=== PATIENT | female | born 1945 | race Caucasian/White ===

== ENCOUNTER 2017-04-05 08:59 | Inpatient (IN) | payer MEDICARE, OTHER ==
[~2017-04-05] VITALS: Ht 160 cm; Wt 65.8 kg
[2017-04-05 11:32] LABS: BASOPHILS # (AUTO) 0.3 /CMM (0.0-0.2); BASOPHILS % (AUTO) 3.1 % (0.0-2.0); EOSINOPHILS # (AUTO) 0.4 /CMM (0.0-0.7); EOSINOPHILS % (AUTO) 4.9 % (0.0-6.0); HEMATOCRIT 43 % (33-45); HEMOGLOBIN 13.8 g/dL (11.5-14.8); LYMPHOCYTES # (AUTO) 1.8 /CMM (0.8-4.8); LYMPHOCYTES % (AUTO) 22.2 % (20.0-44.0); MEAN CORPUSCULAR HEMOGLOBIN 27 PG (26.0-33.0); MEAN CORPUSCULAR HGB CONC 32 g/dl (31.0-36.0); MEAN CORPUSCULAR VOLUME 85 fL (82-100); MONOCYTES # (AUTO) 0.7 /CMM (0.1-1.30); MONOCYTES % (AUTO) 8.4 % (2.0-12.0); NEUTROPHILS % (AUTO) 61.4 % (43.0-81.0); PLATELET COUNT (AUTO) 321 /CMM (150-450); RDW COEFFICIENT OF VARIATION 16.5 (11.5-15.0); RED BLOOD CELL COUNT(AUTO) 5.09 MIL/uL (4.0-5.2); WHITE BLOOD COUNT (AUTO) 8.2 K/uL (4.3-11.0)
[2017-04-05 11:42] LABS: CALCIUM, SERUM 9.1 mg/dL (8.5-10.1); CARBON DIOXIDE 27 mmol/L (21-32); CHLORIDE 102 mmol/L (98-107); CREATININE 1.8 mg/dL (0.6-1.3); GLUCOSE 111 mg/dL (74-106); POTASSIUM 4.7 mmol/L (3.5-5.1); SODIUM SERUM 138 mmol/L (136-145); UREA NITROGEN, BLOOD 26 mg/dL (7-18)
[2017-04-05 11:48] LABS: ALANINE AMINOTRANSFERASE 17 U/L (12-78); ALBUMIN 3.9 g/dL (3.4-5.0); ALCOHOL, BLOOD < 3 mg/dL (0-0); ALKALINE PHOSPHATASE 90 U/L (46-116); BILIRUBIN,TOTAL 0.6 mg/dL (0.2-1.0); SALICYLATE 3.1 mg/dL (2.8-20.0); TOTAL PROTEIN, SERUM 8.2 g/dL (6.4-8.2)
[2017-04-05 11:49] LABS: ACETAMINOPHEN 0 ug/ml (10-30)
[2017-04-05 11:58] LABS: ASPARTATE AMINOTRANSFERASE 21 U/L (15-37)
--- NOTE | 2017-04-05 12:06 | NUR ---
CALLED [facility] FOR PSYCH EVAL, LEFT MESSAGE ON VOICEMAIL
--- NOTE | 2017-04-05 12:13 | NUR ---
RECEIVED CALL BACK FROM [facility], SHE SAID [facility] IS COVERING FOR HER TODAY.
--- NOTE | 2017-04-05 12:14 | NUR ---
CALLED [facility] FOR PSYCH EVAL, LEFT MESSAGE ON VOICEMAIL
[2017-04-05] MEDS ORDERED: HALOPERIDOL LACTATE INJ 5 MG/ML VIAL IM ONE (12:30)
--- NOTE | 2017-04-05 12:36 | NUR ---
RECEIVED CALL BACK FROM [facility], ETA WITHIN THE HOUR
[2017-04-05] MEDS ORDERED: HALOPERIDOL LACTATE INJ 5 MG/ML VIAL ONE (12:57)
[2017-04-05] MEDS ORDERED: LORAZEPAM INJ 2 MG/ML VIAL IM ONE (13:30)
[2017-04-05] MEDS ORDERED: diphenhydrAMINE HCL 50 MG/ML VIAL ONE (13:30)
[2017-04-05] MEDS ORDERED: OLANZAPINE 10 MG VIAL IM ONE ×2 (13:30)
[2017-04-05] MEDS ORDERED: LORAZEPAM INJ 2 MG/ML VIAL ONE (13:30)
[2017-04-05] MEDS ORDERED: diphenhydrAMINE HCL 50 MG/ML VIAL IM ONE (13:30)
[2017-04-05] MEDS ORDERED: WATER FOR INJECTION,STERILE 10 ML ONE (13:32)
[2017-04-05] MEDS ORDERED: IV NS 0.9% 1,000 ML BAG IV ONE (16:00)
[2017-04-05 16:34] LABS: APPEARANCE,URINE CLEAR (CLEAR); BILIRUBIN,URINE NEGATIVE (NEGATIVE); BLOOD, URINE NEGATIVE Ery/uL (NEGATIVE); COLOR,URINE DARK YELLO (YELLOW); KETONES,URINE NEGATIVE (NEGATIVE); LEUKOCYTE ESTERASE ,URINE NEGATIVE (NEGATIVE); NITRITE, URINE NEGATIVE (NEGATIVE); PH,URINE 5.5 (5.0-8.0); PROTEIN,URINE NEGATIVE (NEGATIVE); UGLUCOSE NEGATIVE (NEGATIVE); UROBILINOGEN,URINE 0.2 EU/dL (0.2)
[2017-04-05] MEDS ORDERED: IV NS 0.9% 1,000 ML ONE (16:50)
[2017-04-05] MEDS ORDERED: IV SET PRIMARY 1 EA INFUS.SET MC ONE (16:50)
--- NOTE | 2017-04-05 16:51 | NUR ---
CESARIO PAGED, ROSALEE RAMIREZ MOLD CONSTRUCTION SUPERVISOR
--- NOTE | 2017-04-05 16:51 | NUR ---
CALLED NURSING SUP. FOR TELE BED
--- NOTE | 2017-04-05 17:14 | NUR ---
[facility] REPAGED
--- NOTE | 2017-04-05 17:55 | NUR ---
TELE 325-2
--- NOTE | 2017-04-05 18:12 | NUR ---
REPORT GIVEN TO WALLY KUO FOR [employer] TELE 325-2
[2017-04-05] MEDS ORDERED: TRAM50TA2 PO (18:42)
[2017-04-05] MEDS ORDERED: SIMV20TA6 PO (18:42)
[2017-04-05] MEDS ORDERED: ASPI-991 PO (18:42)
[2017-04-05] MEDS ORDERED: NAPR500T3 PO (18:42)
[2017-04-05 19:00] VITALS: BP 118/77
--- NOTE | 2017-04-05 19:00 | NUR ---
tele long term care pharmacist: notes brought pt from e.r. via gurney and transferred pt safely back to bed. pt too sedated to be assessed at this time. oral temp and axillary temp not taking it, attempted multiple times and still unable to take. pt shivering. provided 3 warm blankets. placed pt on tele=-sr on the monitor. rectal temp taken 95.6. placed pt on a gown. incontinent care rendered. kept clean and dry. cn made aware re: hypothermia. report given to hattie ogden) for continuity of care. will continue to monitor.
--- NOTE | 2017-04-05 19:45 | NUR ---
RN OPENING NOTES RECEIVED REPORT FROM AYAAN HUDSON LVN. Pt ARRIVED ONTO FLOOR CLOSE TO 1900. FOUND Pt ASLEEP IN BED. TOO SEDATED TO BE WAKEN UP AT THIS TIME. WILL TRY AGAIN TO WAKE UP Pt. RECTAL TEMP OF 95.6F. GIVEN EXTRA WARM BLANKET AND PUT HEATER ON HIGH. WILL RECHECK TEMP FOR 1999 VS. IV ACCESS ON RAC #20G. TELE READING SR 90's. SAFETY MEASURES IN PLACE. BED LOW, LOCKED, HOB ELEVATED, SIDE RAILS UP, CALL LIGHT AND BEDSIDE TABLE WITHIN REACH. WILL CONTINUE TO MONITOR Pt THROUGHOUT THE NIGHT FOR SAFETY.
[2017-04-05 20:00] VITALS: BP 96/52
[2017-04-05 22:00] VITALS: BP 96/52
[2017-04-06] VITALS: BP 107/56
[2017-04-06] MEDS ORDERED: ONDANSETRON HCL/PF 4 MG/2 ML VIAL IVP PRN
[2017-04-06] MEDS ORDERED: ACETAMINOPHEN 325 MG TABLET PO PRN
[2017-04-06] MEDS ORDERED: Z GUARD REMEDY 2 OZ OINT TP PRN
[2017-04-06] MEDS ORDERED: MAG HYDROX/AL HYDROX/SIMETH 30 ML UDC PO PRN
[2017-04-06] MEDS ORDERED: MAGNESIUM HYDROXIDE 30 ML UDC PO PRN
[2017-04-06] MEDS ORDERED: IV NS 0.9% 1,000 ML ONE (00:51)
[2017-04-06] MEDS ORDERED: IV SET PRIMARY PUMP SET 1 EA INFUS.SET MC ONE (00:51)
[2017-04-06] MEDS: IV NS 0.9% 1,000 ML IV PRN (01:08)
[2017-04-06 04:00] VITALS: BP 107/53
[2017-04-06] MEDS ORDERED: CLINDAMYCIN IV RTU IN D5W 600 MG/50 ML PIGGYBACK IV SCH (05:00)
[2017-04-06] MEDS ORDERED: CLINDAMYCIN 900 MG/6 ML VIAL ONE (05:38)
[2017-04-06] MEDS ORDERED: IV D5W 50 ML IV ONE (06:21)
[2017-04-06] MEDS ORDERED: SECONDARY IV SET 1 EA INFUS.SET MC ONE (06:21)
--- NOTE | 2017-04-06 06:49 | NUR ---
RN CLOSING NOTES NO SIGNIFICANT CHANGES IN Pt's CONDITION. NO S/S OF ACUTE DISTRESS OR SOB NOTED. EQUAL CHEST RISE AND FALL. Pt STILL SEDATED, BUT IS AROUSED TO EXTERNAL STIMULI. VS STABLE. ALL NEEDS MET AND ATTENDED TO. SAFETY MEASURES IN PLACE. WILL ENDORSE TO DAYSHIFT RN FOR Pt's GUANACO. TELE READING SR 90's.
[2017-04-06 07:06] VITALS: BP 101/54
[2017-04-06] MEDS: PANTOPRAZOLE 40 MG TABLET.DR PO SCH ×2 (07:30→13:06)
[2017-04-06 07:38] LABS: BASOPHILS % (AUTO) 0.2 % (0.0-2.0); EOSINOPHILS # (AUTO) 0.4 /CMM (0.0-0.7); EOSINOPHILS % (AUTO) 6.8 % (0.0-6.0); HEMATOCRIT 39 % (33-45); HEMOGLOBIN 12.9 g/dL (11.5-14.8); LYMPHOCYTES # (AUTO) 1.4 /CMM (0.8-4.8); LYMPHOCYTES % (AUTO) 26.7 % (20.0-44.0); MEAN CORPUSCULAR HEMOGLOBIN 28 PG (26.0-33.0); MEAN CORPUSCULAR HGB CONC 33 g/dl (31.0-36.0); MEAN CORPUSCULAR VOLUME 83 fL (82-100); MONOCYTES # (AUTO) 0.4 /CMM (0.1-1.30); MONOCYTES % (AUTO) 8.6 % (2.0-12.0); NEUTROPHILS % (AUTO) 57.7 % (43.0-81.0); PLATELET COUNT (AUTO) 256 /CMM (150-450); RED BLOOD CELL COUNT(AUTO) 4.67 MIL/uL (4.0-5.2); WHITE BLOOD COUNT (AUTO) 5.1 K/uL (4.3-11.0)
[2017-04-06 07:50] LABS: CREATININE 1.1 mg/dL (0.6-1.3); MAGNESIUM 1.8 mg/dL (1.8-2.4); PHOSPHORUS 3.7 mg/dL (2.5-4.9); POTASSIUM 4.3 mmol/L (3.5-5.1)
--- NOTE | 2017-04-06 08:08 | NUR ---
RN OPENING NOTES RECEIVED PATIENT IN BED, AWAKE, IN SEMI AVELAR POSITION, NO SOB OR DISTRESS NOTED. A/O X 1-2. IV INTACT AND PATENT. KEPT PATIENT CLEAN AND COMFORTABLE IN BED, CALL LIGHT WITHIN PATIENT REACH. WILL CONTINUE TO MONITOR ACCORDINGLY.
[2017-04-06] MEDS: ASPIRIN EC 81 MG TABLET.DR PO SCH (09:00)
--- NOTE | 2017-04-06 11:14 | NUR ---
WOUND CARE CONSULT: PT BEING SEEN BY SURGICAL TEAM. DEFER TO SURGICAL TEAM. RECOMMENDATIONS MADE FOR SKIN PROTECTION. DISCUSSED WITH NURSING STAFF. WILL SEE PRN.
[2017-04-06] MEDS: HYDROCODONE/APAP 5/325MG 1 EACH TABLET PO PRN ×2 (13:07→23:33)
[2017-04-06] MEDS: CLINDAMYCIN 600 MG in IV D5W 50 ML IV SCH ×2 (13:18→21:23)
[2017-04-06] MEDS ORDERED: OLANZAPINE 10 MG VIAL IM PRN (14:30)
[2017-04-06] MEDS ORDERED: OLANZAPINE 5 MG/TAB.RAPDIS PO PRN (14:30)
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
[2017-04-06 16:21] VITALS: BP 138/70
[2017-04-06] MEDS: CLOTRIMAZOLE 1% 15 GM TUBE TP SCH (16:58)
[2017-04-06] MEDS: SILVER SULFADIAZINE CREAM 25 GM TUBE TP SCH (18:34)
--- NOTE | 2017-04-06 18:42 | NUR ---
RN CLOSING NOTES ALL NEEDS PROVIDED, ATTENDED, AND ANTICIPATED. KEPT PATIENT CLEAN AND COMFORTABLE IN BED, CALL LIGHT WITHIN PATIENT REACH, WILL CONTINUE TO MONITOR ACCORDINGLY. ENDORSED TO NEXT SHIFT RN TO CONTINUE CARE.
[2017-04-06 20:00] VITALS: BP 132/71
--- NOTE | 2017-04-06 21:37 | NUR ---
RN OPEN NOTES RECEIVED PATIENT FROM MADONNA LO. PATIENT AWAKE IN BED WITH SITTER AT BEDSIDE. A/O X3. NO SIGNS OF DISTRESS OR DISCOMFORT. BREATHING EVEN AND UNLABORED. IV ACCESS IN LFA PATENT AND INTACT, NO SIGNS OF REDNESS OR INFILTRATION. BED IN LOW LOCKED POSITION WITH SIDE RAILS X2. CALL LIGHT WITHIN REACH. WILL CONTINUE TO MONITOR.
[2017-04-06 22:00] VITALS: BP 132/71
[2017-04-06] MEDS: SIMVASTATIN 20 MG TABLET PO SCH (22:28)
--- NOTE | 2017-04-06 23:37 | NUR ---
RN NOTES ADMINISTERED NORCO 5/325 FOR PAIN 7/10 IN LEFT KNEE. VSS. WILL CONTINUE TO MONITOR.
[2017-04-07] MEDS: IV NS 0.9% 1,000 ML IV PRN (04:40)
[2017-04-07] MEDS: CLINDAMYCIN 600 MG in IV D5W 50 ML IV SCH ×3 (04:41→20:02)
[2017-04-07] MEDS: HYDROCODONE/APAP 5/325MG 1 EACH TABLET PO PRN ×3 (05:48→20:02)
--- NOTE | 2017-04-07 05:48 | NUR ---
RN NOTES ADMINISTERED NORCO 5/325 FOR PAIN 7/10 IN LEFT KNEE. VSS. WILL CONTINUE TO MONITOR.
--- NOTE | 2017-04-07 06:40 | NUR ---
RN CLOSING NOTES PATIENT RESTING IN BED WITH SITTER AT BEDSIDE, EASILY AROUSABLE TO NAME. A/O X3. NO SIGNS OF DISTRESS OR DISCOMFORT. BREATHING EVEN AND UNLABORED. IV ACCESS IN LFA PATENT AND INTACT, NO SIGNS OF REDNESS OR INFILTRATION. NO SIGNIFICANT CHANGES THROUGH THE NIGHT. ALL NEEDS MET. DRESSING ON R KNEE C/D/I. BED IN LOW LOCKED POSITION WITH SIDE RAILS X2. CALL LIGHT WITHIN REACH. WILL ENDORSE TO AM SHIFT FOR GUANACO.
[2017-04-07] MEDS: CLOTRIMAZOLE 1% 15 GM TUBE TP SCH ×2 (09:28→16:40)
[2017-04-07] MEDS: ASPIRIN EC 81 MG TABLET.DR PO SCH (09:28)
[2017-04-07] MEDS: FLUCONAZOLE (100 MG) 100 MG TABLET PO SCH (09:28)
[2017-04-07] MEDS: PANTOPRAZOLE 40 MG TABLET.DR PO SCH (09:28)
[2017-04-07] MEDS: SILVER SULFADIAZINE CREAM 25 GM TUBE TP SCH (09:28)
[2017-04-07] MEDS: OLANZAPINE 5 MG/TAB.RAPDIS PO SCH (16:41)
--- NOTE | 2017-04-07 17:48 | NUR ---
RECEIVED REPORT FROM JOHNNIE FOR GUANACO.
--- NOTE | 2017-04-07 18:54 | NUR ---
MS RN CLOSING NOTES PATIENT IN BED, A/O X3. APPEARS CALM AND RELAX. LEFT KNEE, LEFT HEEL WOUND DRESSING INTACT, NO BLEEDING NOTED, NO C/O PAIN AT THIS TIME. NOT IN DISTRESS. CALL LIGHT WITHIN REACH. PATIENT IS ON 5150 HOLD, 1:1 SITTER AT THE BEDSIDE. WILL ENDORSE TO LIGHTING SPECIALIST RN FOR CONTINUITY OF CARE.
[2017-04-07 20:00] VITALS: BP 120/70
--- NOTE | 2017-04-07 20:02 | NUR ---
MS/RN NOTES PT C/O OF ACHING PAIN, LEVEL 8/10, TO R KNEE AND R HEEL. ADMINISTERED NORCO. WILL MONITOR FOR EFFECTIVENESS.
[2017-04-07 20:29] VITALS: BP 120/70
[2017-04-07] MEDS: SIMVASTATIN 20 MG TABLET PO SCH (21:35)
[2017-04-08] MEDS: CLINDAMYCIN 600 MG in IV D5W 50 ML IV SCH ×2 (05:17→13:00)
--- NOTE | 2017-04-08 07:27 | NUR ---
MS/RN NOTES A&OX4. CALM AND COOPERATIVE MOST OF SHIFT. RA. IVF IN PROGRESS. R KNEE AND R HEEL DRSNG CDI. SLEPT MOST OF NIGHT. SITTER AT BEDSIDE. ALL NEEDS MET. SIDE TABLE AND CALL GAVIN WITHIN REACH. WILL ENDORSE TO AM SHIFT FOR CONTINUITY OF CARE.
[2017-04-08 08:00] VITALS: BP 126/69
--- NOTE | 2017-04-08 08:00 | NUR ---
MS RN RECEIVED ON BED, AWAKE,ALERT,ORIENTED X3,NOT IN ANY FORM OF DISTRESS, A [facility] PSYCH PATIENT,NOT IN NAY FORM OF DISTRESS, ON ONE ON ONE SITTER FOR SAFETY AND COMFORT.
[2017-04-08] MEDS: ACIDOPHILUS/BULGARICUS 1 EACH TAB.CHEW PO SCH ×3 (09:17→17:04)
[2017-04-08] MEDS: ASPIRIN EC 81 MG TABLET.DR PO SCH (09:18)
[2017-04-08] MEDS: HYDROCODONE/APAP 5/325MG 1 EACH TABLET PO PRN ×2 (09:18→17:04)
[2017-04-08] MEDS: PANTOPRAZOLE 40 MG TABLET.DR PO SCH (09:18)
[2017-04-08] MEDS: FLUCONAZOLE (100 MG) 100 MG TABLET PO SCH (09:18)
[2017-04-08] MEDS: SILVER SULFADIAZINE CREAM 25 GM TUBE TP SCH (09:27)
[2017-04-08] MEDS: OLANZAPINE 5 MG/TAB.RAPDIS PO SCH ×2 (09:28→17:05)
[2017-04-08] MEDS: CLOTRIMAZOLE 1% 15 GM TUBE TP SCH ×2 (09:28→17:05)
--- NOTE | 2017-04-08 09:30 | NUR ---
MS LO BREAKFAST SERVED,DUE MEDS GIVEN,TOLERATED WELL.
--- NOTE | 2017-04-08 12:00 | NUR ---
MS RN WAS SEEN BY DR. LIRIANO W/ ORDERS MADE AND CARRIED OUT.
--- NOTE | 2017-04-08 13:00 | NUR ---
MS RN PATIENT REFUSED TO TAKE DUE MEDS, IV OUT, REFUSED TO INSERT ANOTHER LINE,WILL TRY LATER.
[2017-04-08 16:00] VITALS: BP 121/78
--- NOTE | 2017-04-08 16:56 | NUR ---
MS RN PATIENT WILL BE TRANSFERRED TO [facility] UNIT LATER.
--- NOTE | 2017-04-08 18:35 | NUR ---
MS RN PATIENT WENT TO [facility], NO DISTRESS NOTED,ALL NEEDS ATTENDED. REPORT GIVEN TO AM NURSE.
[2017-04-08] MEDS ORDERED: CLIN300C97 PO (21:25)
[2017-04-08] MEDS ORDERED: HYDR-3326 PO (21:25)
[2017-04-08] MEDS ORDERED: FLUC100T8 PO (21:25)
[2017-04-08] MEDS ORDERED: ACID1TAB12 PO (21:25)
[2017-04-09] MEDS ORDERED: OLAN5TAB3 IM (00:10)
[2017-04-09] MEDS ORDERED: HYDR-552 PO (00:10)
[2017-04-09] MEDS ORDERED: SIMV20TA6 PO (00:10)
[2017-04-09] MEDS ORDERED: MAG-55 PO (00:10)
[2017-04-09] MEDS ORDERED: SILV20CR3 TP (00:10)
[2017-04-09] MEDS ORDERED: MAGN400O4 PO (00:10)
[2017-04-09] MEDS ORDERED: [UNRECOGNIZED DRUG - CODE] TP (00:10)
[2017-04-09] MEDS ORDERED: CLOT15CR63 TP (00:10)
[2017-04-09] MEDS ORDERED: OLAN5TAB3 PO ×2 (00:10)
[2017-04-09] MEDS ORDERED: FLUC200T8 PO (00:10)
[2017-04-09] MEDS ORDERED: PANT40TA2 PO (00:10)
[2017-04-09] MEDS ORDERED: ASPI-991 PO (00:10)
[2017-04-09] MEDS ORDERED: ACET-868 PO (00:10)
[2017-04-09] MEDS ORDERED: ACID1TAB12 PO (00:10)
[2017-04-09] MEDS ORDERED: OLAN10VI IM (07:40)
== END 2017-04-08 18:37 | DRG 673 ==
LOC: ER 09:09 → TELE 18:22 → MED 04-06 09:11
PROVIDERS: ADMIT Nurse Practitioner Acute Care; ATTEND Nurse Practitioner Acute Care
PROC: 0JBR0ZZ Excision of Left Foot Subcutaneous Tissue and Fascia, Open Approach (ICD-10-PCS; principal; 2017-04-08)
DX: N17.0 Acute kidney failure with tubular necrosis (principal); G92 Toxic encephalopathy; L03.116 Cellulitis of left lower limb; L97.429 Non-pressure chronic ulcer of left heel and midfoot with unspecified severity; F29 Unspecified psychosis not due to a substance or known physiological condition; Z59.0 Homelessness; E78.5 Hyperlipidemia, unspecified; E11.40 Type 2 diabetes mellitus with diabetic neuropathy, unspecified; E86.9 Volume depletion, unspecified; F20.9 Schizophrenia, unspecified; B35.1 Tinea unguium; E11.621 Type 2 diabetes mellitus with foot ulcer; S81.802A Unspecified open wound, left lower leg, initial encounter; X58.XXXA Exposure to other specified factors, initial encounter; Y93.9 Activity, unspecified; Y92.9 Unspecified place or not applicable
CPT/HCPCS: 36415; 70450-TC; 71010-TC; 80048-TC; 80076-TC; 80305; 81000-TC; 83735-TC; 84100-TC; 84484-TC; 85025-TC; 87070-TC; 87081-TC; A4606; A6402; A6403; G0480; J1200; J1630; J2060; J3490; J7030; J7060; Z7610

== ENCOUNTER 2017-04-08 21:58 | Inpatient (IN) | payer MEDICARE, OTHER ==
[~2017-04-08] VITALS: Ht 162.6 cm; Wt 64.0 kg
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
[~2017-04-08 21:58] MED LIST: ACID1TAB12 PO; ASPI-991 PO; CLIN300C97 PO; FLUC100T8 PO; HYDR-3326 PO; NAPR500T3 PO; SIMV20TA6 PO; TRAM50TA2 PO
[2017-04-08] MEDS ORDERED: MAG HYDROX/AL HYDROX/SIMETH 30 ML UDC PO PRN (22:30)
[2017-04-08] MEDS ORDERED: ACETAMINOPHEN 325 MG TABLET PO PRN (22:30)
[2017-04-08] MEDS ORDERED: LORAZEPAM 0.5 MG TABLET PO PRN (22:30)
[2017-04-08] MEDS ORDERED: MAGNESIUM HYDROXIDE 30 ML UDC PO PRN (22:30)
[2017-04-08] MEDS ORDERED: LORAZEPAM 0.5 MG TABLET ONE (22:33)
[2017-04-08] MEDS ORDERED: TEMAZEPAM 7.5 MG CAPSULE ONE (22:33)
[2017-04-08] MEDS: TEMAZEPAM 7.5 MG CAPSULE PO PRN (22:58)
--- NOTE | 2017-04-08 22:59 | NUR ---
GPS/RN NOTE: Agitated, unable to sleep, temazepam 7.5 mg cap 1 po given.
[2017-04-09] MEDS ORDERED: MAGN400O4 PO (00:10)
[2017-04-09] MEDS ORDERED: CLOT15CR63 TP (00:10)
[2017-04-09] MEDS ORDERED: HYDR-552 PO (00:10)
[2017-04-09] MEDS ORDERED: MAG-55 PO (00:10)
[2017-04-09] MEDS ORDERED: SIMV20TA6 PO (00:10)
[2017-04-09] MEDS ORDERED: SILV20CR3 TP (00:10)
[2017-04-09] MEDS ORDERED: OLAN5TAB3 PO ×2 (00:10)
[2017-04-09] MEDS ORDERED: ACID1TAB12 PO (00:10)
[2017-04-09] MEDS ORDERED: [UNRECOGNIZED DRUG - CODE] TP (00:10)
[2017-04-09] MEDS ORDERED: FLUC200T8 PO (00:10)
[2017-04-09] MEDS ORDERED: ASPI-991 PO (00:10)
[2017-04-09] MEDS ORDERED: OLAN5TAB3 IM (00:10)
[2017-04-09] MEDS ORDERED: ACET-868 PO (00:10)
[2017-04-09] MEDS ORDERED: PANT40TA2 PO (00:10)
--- NOTE | 2017-04-09 00:21 | NUR ---
GPS/RN NOTE: PATIENT ASLEEP. NO ACUTE DISTRESS NOTED.
[2017-04-09] MEDS ORDERED: OLAN10VI IM (07:40)
[2017-04-09 07:53] LABS: BASOPHILS % (AUTO) 0.4 % (0.0-2.0); EOSINOPHILS # (AUTO) 0.4 /CMM (0.0-0.7); EOSINOPHILS % (AUTO) 6.4 % (0.0-6.0); HEMATOCRIT 39 % (33-45); HEMOGLOBIN 12.9 g/dL (11.5-14.8); LYMPHOCYTES # (AUTO) 1.8 /CMM (0.8-4.8); LYMPHOCYTES % (AUTO) 30.7 % (20.0-44.0); MEAN CORPUSCULAR HEMOGLOBIN 27 PG (26.0-33.0); MEAN CORPUSCULAR HGB CONC 33 g/dl (31.0-36.0); MEAN CORPUSCULAR VOLUME 84 fL (82-100); MONOCYTES # (AUTO) 0.6 /CMM (0.1-1.30); MONOCYTES % (AUTO) 10.7 % (2.0-12.0); NEUTROPHILS # (AUTO) 3.1 /CMM (1.8-8.9); NEUTROPHILS % (AUTO) 51.8 % (43.0-81.0); PLATELET COUNT (AUTO) 245 /CMM (150-450); RED BLOOD CELL COUNT(AUTO) 4.69 MIL/uL (4.0-5.2); WHITE BLOOD COUNT (AUTO) 5.9 K/uL (4.3-11.0)
[2017-04-09 08:36] LABS: BILIRUBIN,TOTAL 0.2 mg/dL (0.2-1.0); CALCIUM, SERUM 9.2 mg/dL (8.5-10.1); CREATININE 0.8 mg/dL (0.6-1.3); POTASSIUM 3.8 mmol/L (3.5-5.1); TOTAL PROTEIN, SERUM 7.3 g/dL (6.4-8.2)
[2017-04-09 08:49] VITALS: BP 120/69
--- NOTE | 2017-04-09 10:00 | NUR ---
HYDRAULIC ELEVATOR CONSTRUCTOR-NOTES NOTED PATIENT REMOVING ALL HER DRESSING ON HER WOUND SITE. RE-EDUCATED ABOUT HER WOUND CARE BUT PATIENT GETS ANGRY AND ARGUMENTATIVE. EXPLAINED THE BENEFITS OF KEEPING THE DRESSING ON BUT PATIENT IS NOT LISTENING INSTEAD SHE CONTINUE REMOVING AND PUTTING SOME TISSUES ON IT AND GETS ANGRY AT THE TANKERMAN. CHARGE NURSE MADE AWARE.
--- NOTE | 2017-04-09 11:30 | NUR ---
RADIO/TV TECHNICIAN-NOTES GUSTAVO RAMIREZ MADE AWARE OF PATIENT MEDICATION NEED TO RECONCILE. PER GUSTAVO RAMIREZ HE WILL SEE AND WILL DO.
[2017-04-09 16:15] VITALS: BP 117/79
--- NOTE | 2017-04-09 17:10 | NUR ---
AN/SQQ 89(V)15 SONAR SYSTEM JOURNEYMAN-NOTES CHANGE PATIENT WOUND DRESSING DUE TO SOILED AND WET.RE-EDUCATE PATIENT NOT TO REMOVE THE DRESSING BY HERSELF. INSTRUCTED TO TELL HER NURSE IF IT SOIL.
--- NOTE | 2017-04-09 18:20 | NUR ---
LAWN [employer] TREE SERVICE SPRAY SUPERVISOR-NOTES STILL AWAITING FOR DNP JAMES TO RECONCILE PATIENT MEDICATIONS. WILL ENDORSE TO AVIATION TECHNICIAN TO FOLLOW UP.
[2017-04-09 20:00] VITALS: BP 145/62
[2017-04-09] MEDS: OLANZAPINE 5 MG/TAB.RAPDIS PO SCH (21:00)
--- NOTE | 2017-04-09 21:16 | NUR ---
PAGED DR. RAMIREZ TO RECONCILE THE MEDS. HE SAID OK. WILL FOLLOW UP.
[2017-04-09] MEDS ORDERED: MAGNESIUM HYDROXIDE 30 ML UDC PO PRN (21:30)
[2017-04-09] MEDS ORDERED: ACETAMINOPHEN 325 MG TABLET PO PRN (21:30)
[2017-04-09] MEDS ORDERED: NAPROXEN 500 MG TABLET ONE (21:33)
[2017-04-09] MEDS ORDERED: SIMVASTATIN 20 MG TABLET ONE (21:34)
[2017-04-09] MEDS ORDERED: TRAMADOL HCL 50 MG TABLET ONE (21:34)
[2017-04-09] MEDS ORDERED: CLINDAMYCIN HCL 150 MG CAPSULE PO ONE (21:35)
[2017-04-09] MEDS: TRAMADOL HCL 50 MG TABLET PO SCH (21:50)
[2017-04-09] MEDS: NAPROXEN 500 MG TABLET PO SCH (21:50)
[2017-04-09] MEDS: SIMVASTATIN 20 MG TABLET PO SCH (21:50)
[2017-04-09] MEDS: TEMAZEPAM 7.5 MG CAPSULE PO PRN (21:51)
[2017-04-09] MEDS: CLINDAMYCIN HCL 150 MG CAPSULE PO SCH (23:58)
[2017-04-10] MEDS ORDERED: CLINDAMYCIN HCL 150 MG CAPSULE PO ONE (06:09)
[2017-04-10] MEDS: CLINDAMYCIN HCL 150 MG CAPSULE PO SCH ×3 (06:24→18:40)
[2017-04-10 08:13] VITALS: BP 132/74
[2017-04-10] MEDS: ASPIRIN EC 81 MG TABLET.DR PO SCH (08:14)
[2017-04-10] MEDS: ACIDOPHILUS/BULGARICUS 1 EACH TAB.CHEW PO SCH ×3 (08:14→16:21)
[2017-04-10] MEDS: FLUCONAZOLE (100 MG) 100 MG TABLET PO SCH (08:14)
[2017-04-10] MEDS: NAPROXEN 500 MG TABLET PO SCH ×2 (08:14→16:22)
[2017-04-10] MEDS: TRAMADOL HCL 50 MG TABLET PO SCH ×3 (08:19→16:21)
[2017-04-10] MEDS: PANTOPRAZOLE 40 MG TABLET.DR PO SCH (08:19)
[2017-04-10] MEDS: OLANZAPINE 5 MG/TAB.RAPDIS PO SCH ×2 (08:20→21:45)
[2017-04-10] MEDS: CLOTRIMAZOLE 1% 15 GM TUBE TP SCH ×2 (08:20→16:23)
[2017-04-10] MEDS: SILVER SULFADIAZINE CREAM 400 GM JAR TP SCH (08:20)
[2017-04-10] MEDS: HYDROCODONE/APAP 5/325MG 1 EACH TABLET PO PRN (09:37)
[2017-04-10 16:17] VITALS: BP 127/77
[2017-04-10 20:00] VITALS: BP 128/75
[2017-04-10] MEDS: SIMVASTATIN 20 MG TABLET PO SCH (21:45)
[2017-04-11] MEDS: CLINDAMYCIN HCL 150 MG CAPSULE PO SCH ×4 (00:22→17:07)
--- NOTE | 2017-04-11 00:38 | NUR ---
Pt has been very argumentative, hyperverbal, paranoid, loud, easily agitated, & intrusive.
[2017-04-11] MEDS: HYDROCODONE/APAP 5/325MG 1 EACH TABLET PO PRN ×2 (02:12→20:51)
[2017-04-11 08:00] VITALS: BP 108/60
[2017-04-11] MEDS: ASPIRIN EC 81 MG TABLET.DR PO SCH (08:14)
[2017-04-11] MEDS: PANTOPRAZOLE 40 MG TABLET.DR PO SCH (08:14)
[2017-04-11] MEDS: ACIDOPHILUS/BULGARICUS 1 EACH TAB.CHEW PO SCH ×3 (08:15→16:20)
[2017-04-11] MEDS: NAPROXEN 500 MG TABLET PO SCH ×2 (08:15→16:21)
[2017-04-11] MEDS: FLUCONAZOLE (100 MG) 100 MG TABLET PO SCH (08:15)
[2017-04-11] MEDS: TRAMADOL HCL 50 MG TABLET PO SCH ×3 (08:16→16:21)
[2017-04-11] MEDS: SILVER SULFADIAZINE CREAM 400 GM JAR TP SCH (08:16)
[2017-04-11] MEDS: CLOTRIMAZOLE 1% 15 GM TUBE TP SCH ×2 (08:16→16:23)
[2017-04-11] MEDS: OLANZAPINE 5 MG/TAB.RAPDIS PO SCH ×2 (08:16→20:52)
--- NOTE | 2017-04-11 13:25 | NUR ---
WOUND CARE CONSULT: PT PRESENTS WITH WOUNDS TO LEFT HEEL AND LEFT KNEE, PRESENT ON ADMISSION. PT FOLLOWED BY DR HERNÁNDEZ AND DR CASIANO. SSD ORDERS NOTED. PT IS CONTINENT AND AMBULATORY. WILL SEE PRN. IRVING IN AGREEMENT WITH PLAN OF CARE. Addendum: 04/11/17 at 1327 by LUC RODRIGUEZ WNDNU Amended: Links added.
--- NOTE | 2017-04-11 14:19 | NUR ---
Initial discharge plan: Pt. is homeless and does not have a place to live. Pt. will need placement upon discharge, but at this point she is refusing placement in a facility and in penitentiary. SW will follow up again with the patient to revisit the subject of placement. SW will follow up with MD and will help form safe and proper discharge.
[2017-04-11 16:00] VITALS: BP 148/70
[2017-04-11] MEDS: GABAPENTIN 300 MG CAPSULE PO SCH ×2 (16:21→20:48)
[2017-04-11 19:36] VITALS: BP 127/63
--- NOTE | 2017-04-11 20:53 | NUR ---
GPS RN NOTE: PATIENT REFUSED ZYPREXA, OFFERED X 3, EXPLAINED THE RISK AND BENEFITS, PATIENT STILL REFUSED. NO AGITATION NOTED AT THIS TIME. WILL CONTINUE TO MONITOR
[2017-04-11] MEDS: SIMVASTATIN 20 MG TABLET PO SCH (21:08)
--- NOTE | 2017-04-11 21:08 | NUR ---
GPS RN NOTE: PATIENT REFUSED SIMVASTATIN, EXPLAINED THE RISK AND BENEFITS, OFFERED X 3 ATTEMPTS, PATIENT STILL REFUSED. WILL CONTINUE TO MONITOR
[2017-04-12] MEDS: CLINDAMYCIN HCL 150 MG CAPSULE PO SCH ×4 (00:24→17:53)
[2017-04-12] MEDS: PANTOPRAZOLE 40 MG TABLET.DR PO SCH (07:33)
[2017-04-12 08:00] VITALS: BP 131/66
[2017-04-12] MEDS: NAPROXEN 500 MG TABLET PO SCH ×2 (08:04→16:27)
[2017-04-12] MEDS: ACIDOPHILUS/BULGARICUS 1 EACH TAB.CHEW PO SCH ×3 (08:04→16:28)
[2017-04-12] MEDS: TRAMADOL HCL 50 MG TABLET PO SCH ×3 (08:05→16:27)
[2017-04-12] MEDS: OLANZAPINE 5 MG/TAB.RAPDIS PO SCH ×2 (08:05→20:46)
[2017-04-12] MEDS: ASPIRIN EC 81 MG TABLET.DR PO SCH (08:05)
[2017-04-12] MEDS: GABAPENTIN 300 MG CAPSULE PO SCH ×3 (08:05→20:46)
[2017-04-12] MEDS: FLUCONAZOLE (100 MG) 100 MG TABLET PO SCH (08:05)
[2017-04-12] MEDS: SILVER SULFADIAZINE CREAM 400 GM JAR TP SCH (08:06)
[2017-04-12] MEDS: CLOTRIMAZOLE 1% 15 GM TUBE TP SCH ×2 (08:06→16:28)
--- NOTE | 2017-04-12 09:00 | NUR ---
[id number]: PT IS ANXIOUS, RESTLESS, HYPERVERBAL, NEEDY, UNCOOPERATIVE, AND REQUIRES CONSTANT REDIRECTION AND PROMPTING TO COMPLETE TASK. WILL CONTINUE TO MONITOR FOR SAFETY AND BEHAVIOR EVERY 15 MINUTES.
[2017-04-12] MEDS ORDERED: BOOST PLUS FOOD-CHOCLATE 237 ML BOX PO ONE (11:30)
[2017-04-12] MEDS: NICOTINE PATCH (14MG) 14 MG PATCH.TD24 TD SCH (12:31)
[2017-04-12 16:00] VITALS: BP_SYST 121; BP_SYST 130; BP_DIAS 77; BP_DIAS 79
[2017-04-12 17:29] VITALS: BP 130/79
[2017-04-12] MEDS: HYDROCODONE/APAP 5/325MG 1 EACH TABLET PO PRN (18:46)
--- NOTE | 2017-04-12 20:47 | NUR ---
GPS RN NOTE: PATIENT REFUSED ZYPREXA, EXPLAINED THE RISK AND BENEFITS, OFFERED X 3, PATIENT STILL REFUSED, WILL CONTINUE TO MONITOR
[2017-04-12 20:53] VITALS: BP 133/68
[2017-04-12] MEDS: SIMVASTATIN 20 MG TABLET PO SCH (21:07)
[2017-04-13] MEDS: CLINDAMYCIN HCL 150 MG CAPSULE PO SCH ×5 (00:39→23:29)
[2017-04-13] MEDS: HYDROCODONE/APAP 5/325MG 1 EACH TABLET PO PRN ×2 (04:12→15:36)
[2017-04-13 08:00] VITALS: BP 130/66
[2017-04-13] MEDS: ACIDOPHILUS/BULGARICUS 1 EACH TAB.CHEW PO SCH ×3 (08:16→16:34)
[2017-04-13] MEDS: PANTOPRAZOLE 40 MG TABLET.DR PO SCH (08:16)
[2017-04-13] MEDS: GABAPENTIN 300 MG CAPSULE PO SCH ×3 (08:16→20:20)
[2017-04-13] MEDS: OLANZAPINE 5 MG/TAB.RAPDIS PO SCH ×3 (08:16→21:00)
[2017-04-13] MEDS: ASPIRIN EC 81 MG TABLET.DR PO SCH (08:16)
[2017-04-13] MEDS: TRAMADOL HCL 50 MG TABLET PO SCH ×3 (08:18→16:35)
[2017-04-13] MEDS: NICOTINE PATCH (14MG) 14 MG PATCH.TD24 TD SCH (08:33)
[2017-04-13] MEDS: NAPROXEN 500 MG TABLET PO SCH ×2 (08:33→16:34)
[2017-04-13] MEDS: CLOTRIMAZOLE 1% 15 GM TUBE TP SCH ×2 (08:33→16:34)
[2017-04-13] MEDS: SILVER SULFADIAZINE CREAM 25 GM TUBE TP SCH (08:34)
[2017-04-13] MEDS: SILVER SULFADIAZINE CREAM 400 GM JAR TP SCH (09:00)
--- NOTE | 2017-04-13 09:48 | NUR ---
BUSINESS TRANSFORMATION MANAGER-NOTES ORDER WAS DUPLICATE
--- NOTE | 2017-04-13 15:23 | NUR ---
YENNY faxed a referral to [facility] [address] [place] [address] . Will follow up
--- NOTE | 2017-04-13 15:41 | NUR ---
TRAVELING BUYER-NOTES PATIENT C/O 7/10 LOWER BACK PAIN. NORCO 5MG/325MG 1 TAB. P.O GIVEN PRN ORDER. WILL CONT. MONITORING FOR SAFETY.
[2017-04-13 16:00] VITALS: BP 148/71
[2017-04-13 20:09] VITALS: BP 135/65
[2017-04-13] MEDS: SIMVASTATIN 20 MG TABLET PO SCH ×2 (21:10→22:00)
--- NOTE | 2017-04-13 22:17 | NUR ---
GPS RN NOTES PATIENT REFUSED OLANZAPINE, STATES THAT SHE IS NOT CRAZY AND SHE WONT TAKE PSYCH MEDS. ALSO REFUSED SIMVASTATIN, STATES THAT SHE PREFERS TO TAKE "ZEGIA" FOR CHOLESTEROL.
--- NOTE | 2017-04-13 22:45 | NUR ---
GPS RN NOTES LEFT KNEE AND FOOT DRESSINGS DONE.
[2017-04-14] MEDS: CLINDAMYCIN HCL 150 MG CAPSULE PO SCH ×4 (05:34→23:34)
[2017-04-14] MEDS: PANTOPRAZOLE 40 MG TABLET.DR PO SCH (08:16)
[2017-04-14 08:30] VITALS: BP 120/70
[2017-04-14] MEDS: GABAPENTIN 300 MG CAPSULE PO SCH ×3 (08:45→20:16)
[2017-04-14] MEDS: OLANZAPINE 5 MG/TAB.RAPDIS PO SCH ×3 (08:45→21:00)
[2017-04-14] MEDS: NAPROXEN 500 MG TABLET PO SCH ×2 (08:45→16:29)
[2017-04-14] MEDS: ACIDOPHILUS/BULGARICUS 1 EACH TAB.CHEW PO SCH ×3 (08:45→16:28)
[2017-04-14] MEDS: ASPIRIN EC 81 MG TABLET.DR PO SCH (08:45)
[2017-04-14] MEDS: NICOTINE PATCH (14MG) 14 MG PATCH.TD24 TD SCH (08:45)
[2017-04-14] MEDS: SILVER SULFADIAZINE CREAM 25 GM TUBE TP SCH (08:47)
[2017-04-14] MEDS: CLOTRIMAZOLE 1% 15 GM TUBE TP SCH ×2 (08:48→16:50)
[2017-04-14] MEDS: TRAMADOL HCL 50 MG TABLET PO SCH ×3 (08:49→16:29)
--- NOTE | 2017-04-14 12:05 | NUR ---
YNENY faxed a referral to [facility] located at [address] [place] [address] [phone]. [phone] but per John at the facility, they are not having any admissions at this point due to survey.
--- NOTE | 2017-04-14 12:08 | NUR ---
Pt. was also referred to [facility] [address] [address] . Will follow up Addendum: 04/18/17 at 1405 by PÉREZ RAMON Per DEVORAH at the facility, pt is accepted.
--- NOTE | 2017-04-14 15:26 | NUR ---
MANAGEMENT ACCOUNTANT-NOTES NOTED PATIENT SCREAMING AND YELLING WITH THE STAFF ANGRY OF BEING IN THE HOSPITAL. ACCUSING THAT THE DOCTORS ARE LYING ABOUT HER HOLD. REDIRECTED AND OFFERED ATIVAN BUT PATIENT REFUSED. ALL NEEDS ATTENDED AND ANTICIPATED. WILL CONT. MONITORING Q15 MINS. FOR SAFETY AND BEHAVIOR.
[2017-04-14 16:39] VITALS: BP 117/66
[2017-04-14 20:00] VITALS: BP 109/59
[2017-04-14] MEDS: SIMVASTATIN 20 MG TABLET PO SCH ×2 (21:06→21:39)
--- NOTE | 2017-04-14 21:40 | NUR ---
GPS RN NOTES PATIENT REFUSED OLANZAPINE, STATES THAT SHE WONT TAKE PSYCH MEDS. ALSO REFUSED SIMVASTATIN, STATES THAT SHE PREFERS TO TAKE "ZEGIA" FOR CHOLESTEROL.
[2017-04-15] MEDS: HYDROCODONE/APAP 5/325MG 1 EACH TABLET PO PRN ×3 (04:12→16:32)
[2017-04-15] MEDS: CLINDAMYCIN HCL 150 MG CAPSULE PO SCH ×3 (05:57→17:24)
[2017-04-15 07:24] LABS: CALCIUM, SERUM 9.4 mg/dL (8.5-10.1); CREATININE 1.1 mg/dL (0.6-1.3); POTASSIUM 5.4 mmol/L (3.5-5.1)
[2017-04-15 08:00] VITALS: BP 122/53
--- NOTE | 2017-04-15 08:25 | NUR ---
Per Pedro Luis from [facility] ([address] [facility] [address] ), patient was accepted to their facility.
[2017-04-15] MEDS: NICOTINE PATCH (14MG) 14 MG PATCH.TD24 TD SCH (08:28)
[2017-04-15] MEDS: CLOTRIMAZOLE 1% 15 GM TUBE TP SCH ×2 (08:28→16:21)
[2017-04-15] MEDS: OLANZAPINE 5 MG/TAB.RAPDIS PO SCH ×2 (08:29→21:00)
[2017-04-15] MEDS: NAPROXEN 500 MG TABLET PO SCH ×2 (08:29→16:25)
[2017-04-15] MEDS: SILVER SULFADIAZINE CREAM 25 GM TUBE TP SCH (08:29)
[2017-04-15] MEDS: ASPIRIN EC 81 MG TABLET.DR PO SCH (08:29)
[2017-04-15] MEDS: GABAPENTIN 300 MG CAPSULE PO SCH ×3 (08:29→20:22)
[2017-04-15] MEDS: TRAMADOL HCL 50 MG TABLET PO SCH ×3 (08:29→16:25)
[2017-04-15] MEDS: PANTOPRAZOLE 40 MG TABLET.DR PO SCH (08:29)
[2017-04-15] MEDS: ACIDOPHILUS/BULGARICUS 1 EACH TAB.CHEW PO SCH ×3 (08:29→16:25)
[2017-04-15] MEDS ORDERED: IV NS 0.9% 1,000 ML BAG IV ONE (10:00)
[2017-04-15] MEDS ORDERED: IV NS 0.9% 1,000 ML IV ONE (11:00)
[2017-04-15] MEDS ORDERED: IV SET PRIMARY PUMP SET 1 EA INFUS.SET MC ONE (11:28)
--- NOTE | 2017-04-15 11:39 | NUR ---
gps dip brazier: notes pt finished with her shower. tx done to left knee and left heel wound. iv inserted by rn to left hand, gauge #22 and ivf of ns started at 100ml/hr as ordered. 1:1 intervention provided. monitored closely by staff.
[2017-04-15 16:00] VITALS: BP 109/57
[2017-04-15 20:00] VITALS: BP 153/68
[2017-04-15] MEDS: SIMVASTATIN 20 MG TABLET PO SCH (22:00)
[2017-04-15] MEDS ORDERED: OLANZAPINE 5 MG/TAB.RAPDIS PO SCH (22:00)
--- NOTE | 2017-04-15 22:08 | NUR ---
GPS RN NOTES PATIENT REFUSED OLANZAPINE, STATES THAT SHE WONT TAKE PSYCH MEDS. ALSO REFUSED SIMVASTATIN, STATES THAT SHE PREFERS TO TAKE "ZEGIA" FOR CHOLESTEROL.
--- NOTE | 2017-04-15 22:45 | NUR ---
GPS RN NOTES IV FLUID CONSUMED AND TERMINATED.
[2017-04-16] MEDS: CLINDAMYCIN HCL 150 MG CAPSULE PO SCH ×4 (00:13→18:01)
[2017-04-16] MEDS: HYDROCODONE/APAP 5/325MG 1 EACH TABLET PO PRN ×2 (02:39→21:35)
[2017-04-16 08:00] VITALS: BP 124/60
[2017-04-16] MEDS: PANTOPRAZOLE 40 MG TABLET.DR PO SCH (08:25)
[2017-04-16] MEDS: ASPIRIN EC 81 MG TABLET.DR PO SCH (09:48)
[2017-04-16] MEDS: GABAPENTIN 300 MG CAPSULE PO SCH ×3 (09:48→21:35)
[2017-04-16] MEDS: OLANZAPINE 5 MG/TAB.RAPDIS PO SCH ×3 (09:48→17:20)
[2017-04-16] MEDS: ACIDOPHILUS/BULGARICUS 1 EACH TAB.CHEW PO SCH ×3 (09:48→17:20)
[2017-04-16] MEDS: NAPROXEN 500 MG TABLET PO SCH ×2 (09:48→17:20)
[2017-04-16] MEDS: NICOTINE PATCH (14MG) 14 MG PATCH.TD24 TD SCH (09:48)
[2017-04-16] MEDS: TRAMADOL HCL 50 MG TABLET PO SCH ×3 (09:49→17:21)
[2017-04-16] MEDS: CLOTRIMAZOLE 1% 15 GM TUBE TP SCH ×2 (09:50→16:14)
[2017-04-16] MEDS: SILVER SULFADIAZINE CREAM 25 GM TUBE TP SCH (09:50)
[2017-04-16 12:40] LABS: CALCIUM, SERUM 9.1 mg/dL (8.5-10.1); POTASSIUM 4.7 mmol/L (3.5-5.1)
[2017-04-16 16:00] VITALS: BP 129/59
--- NOTE | 2017-04-16 19:30 | NUR ---
PS RN NOTE, RECEIVED PATIENT AWAKE AND IN BED, NO S/S OR COMPLAINTS OF PAIN AT THIS TIME. PATIENT IS DISPLAYING NO S/S OF APPARENT DISTRESS AT THIS TIME. PATIENT BREATHING IS UNLABORED WITH EQUAL RISE AND FALL OF THE CHEST. PATIENT IS ALERT AND ORIENTED X 3 ON ROOM AIR WITH A SPO2 97%. PATIENT COMPLAINT WITH MEDICATION, ANXIOUS, COOPERATIVE, CONFUSED AT TIMES, DEMANDING, AND NEEDS REORIENTATION. PATIENT DENIES SUICIDE AND HOMICIDAL IDEATIONS AT THIS TIME. PATIENT ASSISTED WITH TURNING AND REPOSITIONING Q2HR AND PRN FOR COMFORT AND CIRCULATION. PATIENT HAS NO NEEDS AT THIS TIME. PATIENT EDUCATED ON THE USE OF THE CALL GAVIN. PATIENT BED SIDE RAILS UP X2 FOR SAFETY, BED IS LOCKED AND LOW WILL CONTINUE TO MONITOR AND MAINTAIN SAFETY.
[2017-04-16 20:00] VITALS: BP 120/69
[2017-04-16] MEDS: SIMVASTATIN 20 MG TABLET PO SCH (21:32)
--- NOTE | 2017-04-16 21:32 | NUR ---
GPS RN NOTE, PATIENT REFUSED TO TAKE ZOCOR 20MG 1TAB PO HS. OFFERED MEDICATION THREE TIMES BUT STILL PATIENT REFUSED STATING, " I DON'T TAKE THAT MEDICATION, I TAKE SOMETHING ELSE BUT I CAN'T REMEMBER THE NAME ". EDUCATED THE ON THE RISKS AND BENEFITS OF THE AFOREMENTIONED MEDICATION. WILL CONTINUE TO MONITOR THIS PATIENT.
--- NOTE | 2017-04-16 21:35 | NUR ---
GPS RN NOTE, PATIENT HAS A COMPLAINT OF A 5 OUT 10 PAIN IN HER LEFT KNEE AND WOULD LIKE MEDICATION AT THIS TIME. PATIENT VITAL SIGNS ARE STABLE. GAVE NORCO 5-325 PO Q4HR PRN ORDERED. WILL REASSESS PAIN AND I WILL CONTINUE TO MONITOR THIS PATIENT.
--- NOTE | 2017-04-16 22:35 | NUR ---
GPS RN NOTE, PATIENT STATES, " I CAN'T TAKE RESTORIL 7.5MG IT'S TO STRONG FOR ME. CAN I HAVE BENADRYL INSTEAD ". PAGED [facility] AND INFORMED JAMES RAMIREZ DNP OF MY FINDINGS. JAMES RAMIREZ DNP ORDERED BENADRYL 50MG PO HS PRN. ALL ORDERS NOTED AND CARRIED OUT. WILL CONTINUE TO MONITOR THIS PATIENT.
[2017-04-16] MEDS ORDERED: diphenhydrAMINE HCL 50 MG CAPSULE PO PRN (23:00)
[2017-04-17] MEDS: CLINDAMYCIN HCL 150 MG CAPSULE PO SCH ×5 (00:27→23:35)
[2017-04-17] MEDS: PANTOPRAZOLE 40 MG TABLET.DR PO SCH (07:47)
[2017-04-17] MEDS: NAPROXEN 500 MG TABLET PO SCH ×2 (08:10→16:29)
[2017-04-17] MEDS: GABAPENTIN 300 MG CAPSULE PO SCH ×3 (08:10→21:10)
[2017-04-17] MEDS: OLANZAPINE 5 MG/TAB.RAPDIS PO SCH ×3 (08:11→16:29)
[2017-04-17] MEDS: ACIDOPHILUS/BULGARICUS 1 EACH TAB.CHEW PO SCH ×3 (08:11→16:29)
[2017-04-17] MEDS: ASPIRIN EC 81 MG TABLET.DR PO SCH (08:11)
[2017-04-17] MEDS: TRAMADOL HCL 50 MG TABLET PO SCH ×3 (08:11→16:29)
[2017-04-17 08:27] VITALS: BP 147/75
[2017-04-17] MEDS: CLOTRIMAZOLE 1% 15 GM TUBE TP SCH ×2 (08:28→16:32)
[2017-04-17] MEDS: SILVER SULFADIAZINE CREAM 25 GM TUBE TP SCH (08:28)
--- NOTE | 2017-04-17 08:30 | NUR ---
MS RN NOTE PATIENT DOES NOT WANT HER NICOTINE PATCH AT THIS TIME. WILL NOTIFY ME WHEN SHE WANTS
[2017-04-17] MEDS: HYDROCODONE/APAP 5/325MG 1 EACH TABLET PO PRN ×3 (09:32→23:46)
--- NOTE | 2017-04-17 10:07 | NUR ---
GPS RN NOTES PATIENT PARTICIPATING IN GROUP ACTIVITY
--- NOTE | 2017-04-17 10:19 | NUR ---
MS RN NOTES PATIENT STILL NOT WANTING NICOTINE PATCH
--- NOTE | 2017-04-17 12:18 | NUR ---
GPS RN NOTE DR LIRIANO AT BEDSIDE. PATIENT REFUSING MEDICATION. AWARE
[2017-04-17] MEDS: NICOTINE PATCH (14MG) 14 MG PATCH.TD24 TD SCH (14:06)
[2017-04-17 16:00] VITALS: BP 120/64
--- NOTE | 2017-04-17 19:30 | NUR ---
GPS RN NOTES ON BED A/O X3-4,WATCHING TV PROGRAM.LEFT KNEE DRESSING INTACT AND DRY.ENCOURAGED TO ELEVATE ON PILLOWS.WILL CONTINUE TO MONITOR BEHAVIOR.
[2017-04-17 19:57] VITALS: BP 126/75
--- NOTE | 2017-04-17 21:00 | NUR ---
GPS RN NOTES DUE NEURONTIN 300MG PO GIVEN.REFUSED ZOCOR.
[2017-04-17] MEDS: SIMVASTATIN 20 MG TABLET PO SCH (21:11)
--- NOTE | 2017-04-17 23:46 | NUR ---
GPS RN NOTES C/O PAIN VIA LEFT KNEE,MEDICATED WITH NORCO 5/325MG,1 TAB PO FOR MODERATE PAIN.WILL MONITOR FOR RELIEF
--- NOTE | 2017-04-17 23:58 | NUR ---
GPS RN NOTES REFUSED PHOTOGRAPH ON LEFT KNEE.CLAIMED ITS JUST NEW DRESSING,S/P WOUND DEBRIDEMENT YESTERDAY.
[2017-04-18] MEDS: CLINDAMYCIN HCL 150 MG CAPSULE PO SCH ×3 (05:48→17:22)
[2017-04-18] MEDS: PANTOPRAZOLE 40 MG TABLET.DR PO SCH (07:56)
[2017-04-18 08:00] VITALS: BP 137/63
[2017-04-18] MEDS: ASPIRIN EC 81 MG TABLET.DR PO SCH (09:12)
[2017-04-18] MEDS: ACIDOPHILUS/BULGARICUS 1 EACH TAB.CHEW PO SCH ×3 (09:12→16:33)
[2017-04-18] MEDS: OLANZAPINE 5 MG/TAB.RAPDIS PO SCH ×3 (09:13→16:38)
[2017-04-18] MEDS: NAPROXEN 500 MG TABLET PO SCH ×2 (09:13→16:32)
[2017-04-18] MEDS: GABAPENTIN 300 MG CAPSULE PO SCH ×3 (09:13→21:31)
[2017-04-18] MEDS: NICOTINE PATCH (14MG) 14 MG PATCH.TD24 TD SCH (09:13)
[2017-04-18] MEDS: TRAMADOL HCL 50 MG TABLET PO SCH ×3 (09:13→16:33)
[2017-04-18] MEDS: CLOTRIMAZOLE 1% 15 GM TUBE TP SCH ×2 (09:14→16:40)
[2017-04-18] MEDS: SILVER SULFADIAZINE CREAM 25 GM TUBE TP SCH (09:14)
[2017-04-18] MEDS: HYDROCODONE/APAP 5/325MG 1 EACH TABLET PO PRN ×2 (11:05→21:33)
--- NOTE | 2017-04-18 11:06 | NUR ---
DEVELOPMENT TECHNICAL LEAD-NOTES PATIENT C/O 05/19 GENERALIZED BODY PAIN AND REQUESTING NORCO. NORCO 5MG /325MG 1TAB. P.O GIVEN PRN ORDER. WILL CONT. MONITORING FOR SAFETY.
--- NOTE | 2017-04-18 14:04 | NUR ---
Per Dr. Newell, pt. refuses to be placed in a facility. If pt. continues to refuse, then she will need to go to a homeless nursing home or to another confirmed address she wants to go to. SW will speak with the patient again.
[2017-04-18 16:00] VITALS: BP 140/76
[2017-04-18 19:41] VITALS: BP 139/75
[2017-04-18] MEDS: SIMVASTATIN 20 MG TABLET PO SCH (21:31)
[2017-04-19] MEDS: CLINDAMYCIN HCL 150 MG CAPSULE PO SCH ×3 (00:42→12:07)
[2017-04-19] MEDS: HYDROCODONE/APAP 5/325MG 1 EACH TABLET PO PRN (07:08)
[2017-04-19] MEDS: PANTOPRAZOLE 40 MG TABLET.DR PO SCH (07:56)
[2017-04-19 08:00] VITALS: BP 135/61
[2017-04-19] MEDS: GABAPENTIN 300 MG CAPSULE PO SCH (08:07)
[2017-04-19] MEDS: NAPROXEN 500 MG TABLET PO SCH (08:07)
[2017-04-19] MEDS: ASPIRIN EC 81 MG TABLET.DR PO SCH (08:07)
[2017-04-19] MEDS: ACIDOPHILUS/BULGARICUS 1 EACH TAB.CHEW PO SCH ×2 (08:07→12:07)
[2017-04-19] MEDS: TRAMADOL HCL 50 MG TABLET PO SCH ×2 (08:09→12:08)
[2017-04-19] MEDS: OLANZAPINE 5 MG/TAB.RAPDIS PO SCH ×2 (08:10→12:07)
[2017-04-19] MEDS: NICOTINE PATCH (14MG) 14 MG PATCH.TD24 TD SCH (08:10)
[2017-04-19] MEDS: CLOTRIMAZOLE 1% 15 GM TUBE TP SCH (08:36)
[2017-04-19] MEDS: SILVER SULFADIAZINE CREAM 25 GM TUBE TP SCH (08:37)
--- NOTE | 2017-04-19 13:13 | NUR ---
SW spoke with the patient and she now agreed to discharge to [facility] ([address] [facility] [address] ). PJ from the facility came and spoke with the patient and pt. is agreeable.
--- NOTE | 2017-04-19 15:12 | NUR ---
Discharge note: Pt. will be discharged at 3:30PM to [facility] ([facility] [address] ) [facility]. Pt. agrees with the discharge plan, denies suicidal/homicidal ideations, denies hallucinations, and is alert and oriented x4. Discharge instructions have been provided to the accepting facility and discharge paperwork has been signed.
--- NOTE | 2017-04-19 16:15 | NUR ---
DIRECTOR OF MANAGED CARE-NOTES PATIENT WAS DISCHARGE TO [facility] TODAY DR. LIRIANO AND DR. JACOBSON MADE AWARE AND AGREES OF PATIENT DISCHARGE. REPORT WAS GIVEN TO JUAN ANTONIO (NURSING DEPARTMENT CHAIRPERSON). PATIENT DID NOT VERBALIZE SI/HI,DENIES VISUAL/AUDITORY HALLUCINATIONS AT THE TIME OF DISCHARGE.ALL DISCHARGE PAPERS INCLUDING BELONGINGS LIST WAS SIGN BY THE PATIENT. PATIENT LEFT THE UNIT IN STABLE CONDITION WITH ALL HER BELONGINGS. PHARMACY STOCK CLERK BY AMBULANCE VIA GURNEY WITH TWO STAFF ASSIST.
== END 2017-04-19 16:15 | DRG 885 ==
LOC: GPS 21:58
PROVIDERS: ADMIT Psychiatry & Neurology Psychosomatic Medicine; ATTEND Nurse Practitioner Acute Care
DX: F31.2 Bipolar disorder, current episode manic severe with psychotic features (principal); N17.0 Acute kidney failure with tubular necrosis; G92 Toxic encephalopathy; L03.116 Cellulitis of left lower limb; L97.429 Non-pressure chronic ulcer of left heel and midfoot with unspecified severity; L97.829 Non-pressure chronic ulcer of other part of left lower leg with unspecified severity; B35.1 Tinea unguium; E11.40 Type 2 diabetes mellitus with diabetic neuropathy, unspecified; E11.621 Type 2 diabetes mellitus with foot ulcer; E78.5 Hyperlipidemia, unspecified; E87.5 Hyperkalemia; Z73.6 Limitation of activities due to disability
CPT/HCPCS: 36415; 80048-TC; 80053-TC; 85025-TC; 87081-TC; A6253; A6402; J7030; Z7610

== ENCOUNTER 2017-09-14 12:54 | Outpatient (CLI) | payer MEDICARE, OTHER ==
[~2017-09-14 12:54] MED LIST changes: +ACET-868 PO; +CLOT15CR63 TP; -FLUC100T8 PO; +FLUC200T8 PO; -HYDR-3326 PO; +HYDR-552 PO; +MAG-55 PO; +MAGN400O4 PO; +OLAN10VI IM; +OLAN5TAB3 PO; +PANT40TA2 PO; +SILV20CR3 TP; +[UNRECOGNIZED DRUG - CODE] TP
== END 2017-09-14 23:59 | disposition home or self-care (01) ==
LOC: WOU 12:54
PROVIDERS: ATTEND Specialist
DX: S81.012D Laceration without foreign body, left knee, subsequent encounter (principal); X58.XXXD Exposure to other specified factors, subsequent encounter; Z59.0 Homelessness; Z72.0 Tobacco use; E11.9 Type 2 diabetes mellitus without complications
CPT/HCPCS: A6209; G0463

== ENCOUNTER 2017-09-20 12:45 | Outpatient (CLI) | payer MEDICARE, OTHER | END 2017-09-20 23:59 | disposition home or self-care (01) | LOC: WOU 12:45 | PROVIDERS: ATTEND Podiatrist Foot & Ankle Surgery | DX: E11.42 Type 2 diabetes mellitus with diabetic polyneuropathy (principal); B35.1 Tinea unguium; R60.0 Localized edema; L84 Corns and callosities; L85.3 Xerosis cutis | CPT/HCPCS: A6402; G0463 ==

== ENCOUNTER 2017-09-21 13:35 | Outpatient (CLI) | payer MEDICARE, OTHER ==
[~2017-09-21 13:35] MED LIST changes: +ASPI-1152 PO; -ASPI-991 PO; +CLIN300C11 PO; -CLIN300C97 PO; +MAGN400O21 PO; -MAGN400O4 PO; -NAPR500T3 PO; +NAPR500T4 PO; +SILV20CR13 TP; -SILV20CR3 TP
== END 2017-09-21 23:59 | disposition home or self-care (01) ==
LOC: WOU 13:35
PROVIDERS: ATTEND Specialist
DX: S81.012A Laceration without foreign body, left knee, initial encounter (principal); X58.XXXA Exposure to other specified factors, initial encounter; Z59.0 Homelessness; Z72.0 Tobacco use; M16.10 Unilateral primary osteoarthritis, unspecified hip; M06.9 Rheumatoid arthritis, unspecified; E11.9 Type 2 diabetes mellitus without complications; L97.221 Non-pressure chronic ulcer of left calf limited to breakdown of skin
CPT/HCPCS: 11042; A6209; A6402

== ENCOUNTER 2017-09-28 21:44 | Inpatient (IN) | payer MEDICARE, OTHER ==
[~2017-09-28] VITALS: Ht 160 cm; Wt 68.9 kg
--- NOTE | 2017-09-28 22:41 | NUR ---
JAMARI BABCOCK AT BEDSIDE FOR EVAL.
--- NOTE | 2017-09-28 22:46 | NUR ---
PT BIBRA FROM [facility]. PER REPORT, L KNEE SKIN TEAR, UPON ASSESSMEN, NON HEALING WOUND NOTED. NO ACTIVE BLEEDING. PT C/O N/V/D, DIFFUSE ABDOMINAL PAIN. GOWNED AND PLACED ON MONITOR. NAD NOTED. AWAITING MD FRANKLIN.
--- NOTE | 2017-09-28 22:53 | NUR ---
IV LINE STARTED BLOOD DRAWN ANDSENT TO LAB.
[2017-09-28] MEDS ORDERED: ONDANSETRON HCL/PF 4 MG/2 ML VIAL IVP ONE (23:00)
[2017-09-28] MEDS ORDERED: IV NS 0.9% 1,000 ML BAG IV ONE (23:00)
[2017-09-28 23:21] LABS: BASOPHILS % (AUTO) 0.4 % (0.0-2.0); EOSINOPHILS # (AUTO) 0.4 /CMM (0.0-0.7); EOSINOPHILS % (AUTO) 3.8 % (0.0-6.0); HEMATOCRIT 28 % (33-45); HEMOGLOBIN 9.1 g/dL (11.5-14.8); LYMPHOCYTES # (AUTO) 2.3 /CMM (0.8-4.8); MEAN CORPUSCULAR HEMOGLOBIN 27 PG (26.0-33.0); MEAN CORPUSCULAR HGB CONC 33 g/dl (31.0-36.0); MEAN CORPUSCULAR VOLUME 83 fL (82-100); MONOCYTES # (AUTO) 0.7 /CMM (0.1-1.30); MONOCYTES % (AUTO) 5.9 % (2.0-12.0); NEUTROPHILS # (AUTO) 7.6 /CMM (1.8-8.9); NEUTROPHILS % (AUTO) 68.9 % (43.0-81.0); PLATELET COUNT (AUTO) 283 /CMM (150-450); RDW COEFFICIENT OF VARIATION 17.4 (11.5-15.0); RED BLOOD CELL COUNT(AUTO) 3.38 MIL/uL (4.0-5.2)
[2017-09-28 23:41] LABS: ALBUMIN 3.5 g/dL (3.4-5.0); BILIRUBIN,TOTAL 0.4 mg/dL (0.2-1.0); CALCIUM, SERUM 8.7 mg/dL (8.5-10.1); CREATININE 1.8 mg/dL (0.6-1.3)
[2017-09-28 23:49] LABS: POTASSIUM 6.4 mmol/L (3.5-5.1)
[2017-09-29] VITALS (7 sets, daily range): BP systolic 94–133; BP diastolic 45–66
[2017-09-29] MEDS ORDERED: CALCIUM CHLORIDE 1,000 MG/10 ML DISP.SYRIN IV ONE
[2017-09-29] MEDS ORDERED: DEXTROSE 50%-WATER 50 ML DISP.SYRIN IV ONE
[2017-09-29] MEDS ORDERED: INSULIN REGULAR, HUMAN 100 UNIT/ML 10 ML VIAL IV ONE
--- NOTE | 2017-09-29 00:05 | NUR ---
INSULIN 5 UNITS GIVEN IVP WITNESSED BY PALMIRA DOHERTY.
--- NOTE | 2017-09-29 00:12 | NUR ---
REPORT GIVEN TO
[2017-09-29] MEDS ORDERED: IV NS 0.9% 1,000 ML IV PRN (00:58)
[2017-09-29] MEDS ORDERED: MAG HYDROX/AL HYDROX/SIMETH 30 ML UDC PO PRN (01:00)
[2017-09-29] MEDS ORDERED: Z GUARD REMEDY 2 OZ OINT TP PRN (01:00)
[2017-09-29] MEDS ORDERED: ZOLPIDEM TARTRATE 5 MG TABLET PO PRN (01:00)
[2017-09-29] MEDS ORDERED: ACETAMINOPHEN 325 MG TABLET PO PRN (01:00)
[2017-09-29] MEDS ORDERED: ENOXAPARIN SODIUM 40 MG/0.4 ML DISP.SYRIN SQ SCH (01:00)
[2017-09-29] MEDS ORDERED: ONDANSETRON HCL/PF 4 MG/2 ML VIAL IVP PRN (01:00)
--- NOTE | 2017-09-29 01:00 | NUR ---
RN NOTES 0028AM - ADMITTED PT FROM ER TRANSFER VIA STRETCHER. UNDER DR. EDWARDS ,OLVIN DIAGNOSED WITH GENERALIZED WEAKNESS, HYPERKALEMIA,ARF AND R/O RHABDOMYOLYSIS. WITH HISTORY OF HTN, PSYCHOSIS, SCHIZOPHRENIA D/O CHRONIC LEFT LOWER EXT. NO KNOWN ALLERGIES. AOX2 ABLE TO MAKE KNOWN NEEDS COMPLAINING THAT SHES COLD. WARMTH BLANKET GIVEN TELE MONITOR PLACED READS SR HR 62 DENIES PAIN. AFEBRILE. IV SITE ON RAC G20 INTACT AND PATENT VS TAKEN TEMP 128.66 HR 69 RESP 10 BP 128/66MMHG SATING 99%. SKIN ASSESSMENT DONE IN FRONT PHOTO TAKEN PT REFUSED TO TAKE AT HER BACK AT THIS TIME AND WANTED TO SLEEP.KEPT PT CLEAN AND DRY. INFORMED ABOUT TH PLAN OF CARE . INSTRUCTED TO USED CALL LIGHT KEPT CALL LIGHT WITHIN EASY REACH. WILL ENDORSED CONTINUITY OF CARE.
[2017-09-29] MEDS ORDERED: ENOXAPARIN SODIUM 40 MG/0.4 ML DISP.SYRIN SQ ONE (01:21)
[2017-09-29] MEDS ORDERED: SODIUM POLYSTYRENE SULFONATE 15 G/60 ML BOTTLE PO ONE ×3 (01:30→08:00)
[2017-09-29] MEDS ORDERED: SODIUM POLYSTYRENE SULFONATE 15 G/60 ML BOTTLE ONE (02:04)
--- NOTE | 2017-09-29 02:15 | NUR ---
RN NOTES ONLY 2 BOTTLES OF KAYEXALTE = 30GM GIVEN TO PATIENT AND DRINK WELL. ORIGINAL ORDER WAS 60 GM = 4BOTTLES. WILL ENDORSED TO NEXT SHIFT TO GIVE ANOTHER 2 BOTTLES TO MAKE IT 60 GM. MEDICINE NOT AVAILABLE IN OMNICEL PER HOTEL SUPPLIES SALESPERSON
--- NOTE | 2017-09-29 03:23 | NUR ---
RN NOTES KAYEXALATE 60GM WAS ORDERED FOR PATIENT'S POTASSIUM LEVEL OF 6.4. INQUIRED WITH NURSING BELLHOP CAPTAIN FOR THE MEDICATION SUPPLY. PER NURSING BELLHOP CAPTAIN, THE CURRENT AVAILABILITY OF KAYEXALATE ON THE NIGHT LOCKER IS 30GM. CLARIFIED ORDER WITH YOMAIRA HUMPHRIES TO GIVE 30GM OF KAYEXALATE NOW AND GIVE ANOTHER 30GM IN AM WHEN PHARMACY OPENS TO COMPLETE KAYEXALATE 60GM ORDERED. ORDER NOTED AND CARRIED OUT.
--- NOTE | 2017-09-29 07:00 | NUR ---
RN NOTES PT ASLEEP WELL ON BED. BREATHING EVEN AND UNLABORED. DENIES PAIN THROUGHOUT THE SHIFT. NO SIGNIFICANT CHANGES. ENDORSED TO NEXT SHIFT TO FOLLOW UP REGARDING HER MEDICINE FROM THE BAG. PT NEEDS TO VERIFY ALL MEDICINE AND NEED TO SIGNED THE PLASTIC AT THE PHARMACY. PT DOESN'T WANT TO BE BOTHER AT THIS TIME. KEPT PT CLEAN AND DRY. PT DOESN'T WANT TO BE CHANGE BY STAFF PER PT SHE CAN CHANGE HERSELF AND ABLE TO GO TO THE BATHROOM. ENDORSED CONTINUITY OF CARE TO AM NURSE.
[2017-09-29] MEDS ORDERED: PANTOPRAZOLE 40 MG TABLET.DR PO SCH (07:30)
[2017-09-29] MEDS: ACIDOPHILUS/BULGARICUS 1 EACH TAB.CHEW PO SCH ×3 (09:21→16:12)
[2017-09-29] MEDS: PANTOPRAZOLE 40 MG TABLET.DR PO SCH (09:21)
[2017-09-29] MEDS: ASPIRIN EC 81 MG TABLET.DR PO SCH (09:21)
[2017-09-29] MEDS: OLANZAPINE 5 MG TABLET PO SCH ×2 (09:22→16:12)
[2017-09-29 09:27] LABS: CREATININE 1.4 mg/dL (0.6-1.3); POTASSIUM 4.7 mmol/L (3.5-5.1)
[2017-09-29] MEDS: HYDROCODONE/APAP 5/325MG 1 EACH TABLET PO PRN ×2 (09:49→16:12)
--- NOTE | 2017-09-29 14:42 | NUR ---
Social service consult requested by KIRTIRaina Clements for homelessness. Pt. is a 72 year old female who was admitted to [facility] for anemia. YENNY and child welfare caseworker Florian met with pt. bedside. SW is familiar with pt. from previous admissions. Pt. is alert and oriented x 4. Pt. appeared disheveled and is hyperverbal. Pt. had her belongings bedside. Patient has a history of psychosis and has had had several psychiatric hospitalizations at [facility]. Pt. denies suicidal/homicidal ideations and visual/auditory hallucinations at this time. Pt. denies using alcohol and drugs. Case manage offered pt. SNF placement, however pt. declined. SW offered pt. alf placement and resources and pt. declined those as well. Pt. stated, " i do not want to go to the shelters, they have TB and are dirty". No other social service needs are requested at this time. SW is available if needed.
[2017-09-29] MEDS: ASCORBIC ACID 500 MG TABLET PO SCH (16:12)
[2017-09-29] MEDS: GABAPENTIN 300 MG CAPSULE PO SCH (16:12)
[2017-09-29] MEDS: MULTIVITAMINS,THERAGRAN 1 UDTAB TABLET PO SCH (16:12)
[2017-09-29] MEDS: SILVER SULFADIAZINE CREAM 400 GM JAR TP SCH (16:13)
[2017-09-29] MEDS: HYDROGEL DRESSING 90 GM TUBE TP SCH (16:55)
[2017-09-29] MEDS: CLOTRIMAZOLE 1% 15 GM TUBE TP SCH (17:00)
[2017-09-29] MEDS ORDERED: HALOPERIDOL LACTATE INJ 5 MG/ML VIAL IM ONE (18:00)
--- NOTE | 2017-09-29 18:00 | NUR ---
RN NOTE PT IS AGITATED, WANTS TO LEAVE THE HOSPITAL. PT EARLIER STATED "I CANNOT TAKE THIS ANYMORE, I WANT TO , I AM IN SO MUCH PAIN, NOBODY CAN HELP ME HERE." "I NEED AN EYE SURGERY, BUT GOVERNMENT WILL NOT PAY FOR IT". PT PULLED OUT HER IV ACCESS, DR ARCHIE VAIL, GOT AN ORDER FOR PSYCH CONSULT AND HALDOL IM ONE TIME.
--- NOTE | 2017-09-29 18:15 | NUR ---
RN NOTE CRISIS TEAM NOTIFIED ABOUT THE PT AGITATION AND SUICIDAL THOUGHTS. SAFETY MEASURES IMPLEMENTED. CALL LIGHT WITHIN REACH.
--- NOTE | 2017-09-29 18:43 | NUR ---
RN NOTE PT REFUSED NEW IV INSERTION, REFUSED TELEMONITORING, WILL NOTIFY
--- NOTE | 2017-09-29 19:06 | NUR ---
RN NOTE HALDOL WAS HELD SINCE PT CALMED DOWN, WILL ENDORSE TO GARAGE DOOR TECHNICIAN.
--- NOTE | 2017-09-29 20:20 | NUR ---
RN NOTES RECEIVED PATIENT AGITATED AND IRRITABLE, PATIENT WANTS TO BE LEFT ALONE. SUSANNA, CRISIS GENERAL MACHINE OPERATOR, IN THE UNIT AT 1930 AND PLACED THE PATIENT ON 5150 HOLD FOR GRAVELY DISABLED ADULT. 1:1 SITTER AT BEDSIDE AT THIS TIME. CN MADE AWARE. DIRECTOR OF FIELD SALES NOTIFIED. CALLED AND SPOKE WITH DR. LIRIANO AND NOTIFIED OF THE 5150 HOLD PLACED ON THE PATIENT. NEW ORDER OBTAINED FOR PRN MEDICATIONS FOR THE PATIENT, ORDER NOTED AND CARRIED OUT. WILL CONTINUE TO MONITOR.
[2017-09-29] MEDS ORDERED: OLANZAPINE 10 MG VIAL IM PRN (20:30)
[2017-09-29] MEDS: ENOXAPARIN SODIUM 30 MG/0.3 ML DISP.SYRIN SQ SCH (21:00)
[2017-09-29] MEDS: SIMVASTATIN 20 MG TABLET PO SCH (21:42)
--- NOTE | 2017-09-30 00:52 | NUR ---
RN NOTES PATIENT SLEEPING COMFORTABLY. WITH SCHEDULED TROPONIN ORDERED, PATIENT STRONGLY REFUSED BLOOD DRAW. IRRITABLE AND AGITATED. EXPLAINED RISK AND BENEFITS X3, TO NO AVAIL. CN MADE AWARE. PATIENT'S TROPONIN HAS BEEN <0.017.
--- NOTE | 2017-09-30 06:38 | NUR ---
RN CLOSING NOTES PATIENT SLEPT COMFORTABLY THROUGH THE SHIFT. REFUSED CARE, TREATMENT, MEDS AND REFUSED ASSISTANCE WITH ADLS. PATIENT DID NOT WANT TO BE DISTURBED. NEEDS ANTICIPATED AND MET. SITTER AT BEDSIDE AT ALL TIMES. WILL ENDORSE ACCORDINGLY FOR CONTINUITY OF CARE.
[2017-09-30 07:17] LABS: BASOPHILS % (AUTO) 0.5 % (0.0-2.0); EOSINOPHILS # (AUTO) 0.4 /CMM (0.0-0.7); EOSINOPHILS % (AUTO) 5.9 % (0.0-6.0); HEMATOCRIT 25 % (33-45); HEMOGLOBIN 8.1 g/dL (11.5-14.8); LYMPHOCYTES # (AUTO) 2.1 /CMM (0.8-4.8); LYMPHOCYTES % (AUTO) 32.8 % (20.0-44.0); MEAN CORPUSCULAR HEMOGLOBIN 27 PG (26.0-33.0); MEAN CORPUSCULAR HGB CONC 32 g/dl (31.0-36.0); MEAN CORPUSCULAR VOLUME 83 fL (82-100); MONOCYTES # (AUTO) 0.6 /CMM (0.1-1.30); MONOCYTES % (AUTO) 8.6 % (2.0-12.0); NEUTROPHILS # (AUTO) 3.4 /CMM (1.8-8.9); NEUTROPHILS % (AUTO) 52.2 % (43.0-81.0); PLATELET COUNT (AUTO) 211 /CMM (150-450); RDW COEFFICIENT OF VARIATION 18.2 (11.5-15.0); RED BLOOD CELL COUNT(AUTO) 3.03 MIL/uL (4.0-5.2); WHITE BLOOD COUNT (AUTO) 6.5 K/uL (4.3-11.0)
[2017-09-30 07:34] LABS: CALCIUM, SERUM 8.7 mg/dL (8.5-10.1); CREATININE 1.1 mg/dL (0.6-1.3); MAGNESIUM 1.7 mg/dL (1.8-2.4); PHOSPHORUS 3.8 mg/dL (2.5-4.9); POTASSIUM 3.7 mmol/L (3.5-5.1)
--- NOTE | 2017-09-30 07:59 | NUR ---
MS RN NOTE RECEIVED PT ON BED SLEEPING A/O X2/ ON ROOM AIR TOLERATING WELL. NO SIGNS OF DISTRESS. NO IV ACCESS AT THIS TIME. CALL LIGHT IS PLACED WITHIN REACH. SIDE RAILS UP. HEAD OF BED ELEVATED. WILL CONTINUE TO MONITOR PT CLOSELY.
[2017-09-30 08:00] VITALS: BP 130/73
[2017-09-30] MEDS: ACIDOPHILUS/BULGARICUS 1 EACH TAB.CHEW PO SCH ×3 (08:40→16:52)
[2017-09-30] MEDS: ASPIRIN EC 81 MG TABLET.DR PO SCH (08:40)
[2017-09-30] MEDS: OLANZAPINE 5 MG TABLET PO SCH ×2 (08:40→16:52)
[2017-09-30] MEDS: ASCORBIC ACID 500 MG TABLET PO SCH (08:40)
[2017-09-30] MEDS: MULTIVITAMINS,THERAGRAN 1 UDTAB TABLET PO SCH (08:40)
[2017-09-30] MEDS: GABAPENTIN 300 MG CAPSULE PO SCH ×3 (08:40→16:52)
[2017-09-30] MEDS: PANTOPRAZOLE 40 MG TABLET.DR PO SCH (08:42)
--- NOTE | 2017-09-30 08:47 | NUR ---
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 PATIENT IS CURRENTLY A [facility] PATIENT OF DR CASIANO AND DR HERNÁNDEZ. PLEASE HAVE PATIENT FOLLOW UP IN WOUND CLINIC [phone].
[2017-09-30] MEDS: HYDROGEL DRESSING 90 GM TUBE TP SCH ×2 (08:49→08:52)
[2017-09-30] MEDS: SILVER SULFADIAZINE CREAM 400 GM JAR TP SCH (08:50)
[2017-09-30] MEDS: CLOTRIMAZOLE 1% 15 GM TUBE TP SCH ×2 (08:52→16:52)
[2017-09-30] MEDS ORDERED: HYDROGEL DRESSING 90 GM TUBE TP PRN (09:00)
[2017-09-30 09:16] LABS: THYROID STIMULATING HORMONE 4.075 uIU/mL (0.358-3.74)
--- NOTE | 2017-09-30 09:36 | NUR ---
WOUND CARE CONSULT: PT PRESENTS WITH LEFT KNEE WOUND AND LEFT HEEL FRAGILE SCAR, PRESENT ON ADMISSION. PT ABLE TO REPOSITION IN BED. CURRENT ZO SCORE IS 21. ALL SKIN PROTECTION AND WOUND RECOMMENDATIONS DISCUSSED WITH NURSING STAFF. PT FOLLOWED BY WOUND CLINIC AND DR CASIANO. WILL SEE PRN. IRVING IN AGREEMENT WITH PLAN OF CARE. Addendum: 09/30/17 at 0938 by LUC RODRIGUEZ WNDNU Amended: Links added.
[2017-09-30] MEDS ORDERED: Magnesium 1GM/D5W 100ML PREMIX 100 ML IV SCH (11:00)
[2017-09-30] MEDS: OLANZAPINE 5 MG TABLET PO PRN (12:06)
[2017-09-30] MEDS ORDERED: OLANZAPINE 10 MG VIAL IM ONE (12:30)
[2017-09-30] MEDS: MAGNESIUM OXIDE 400 MG TABLET PO SCH ×2 (12:45→16:52)
--- NOTE | 2017-09-30 13:21 | NUR ---
MS RN NOTES PT REFUSED WOUND CARE DRESSING AND PICTURE OF HER RIGHT HEEL. EXPLAINED THE RISK AND BENEFITS OF WOUND CARE.
--- NOTE | 2017-09-30 13:22 | NUR ---
MS RN NOTES DOCTOR ALMANZA 400MG MAGNESIUM OXIDE BID
--- NOTE | 2017-09-30 13:24 | NUR ---
MS RN NOTES PT REFUSED MAGNESIUM OXIDE. PT IS AGITATED AND RESTLESS. YELLING AT STAFF. EXPLAINED RISK AND BENEFITS OF THE MEDICATION.
--- NOTE | 2017-09-30 14:30 | NUR ---
MS RN NOTES PT AGITATED, TRYING TO GET OUT OF THE ROOM. YELLING AT STAFF. DOCTOR HERI ORDERED ATIVAN 0.5ML ONCE CONGENTIN 2MG/2ML DAILY AND HALOPERIDOL 5MG/1ML.
[2017-09-30] MEDS ORDERED: HALOPERIDOL LACTATE INJ 5 MG/ML VIAL IM ONE (15:00)
[2017-09-30] MEDS ORDERED: LORAZEPAM INJ 2 MG/ML VIAL IV PRN (15:00)
[2017-09-30] MEDS ORDERED: LORAZEPAM INJ 2 MG/ML VIAL IM ONE (15:00)
[2017-09-30 16:00] VITALS: BP 127/72
--- NOTE | 2017-09-30 17:48 | NUR ---
MS RN NOTES PT REFUSED ALL PM MEDS. EXPLAINED THE RISK AND BENEFITS OF THE MEDICATIONS
--- NOTE | 2017-09-30 18:26 | NUR ---
MS RN NOTES PT IS AGITATED, RESTLESS DURING THE SHIFT. REFUSED ALL PM MEDS. ON ROOM AIR TOLERATING WELL. NO SIGN OF DISTRESS. WOUND CARE REFUSED. ONE 1 :1 SITTER. CALL LIGHT IS PLACED WITHIN REACH. SIDE RAILS UP, HEAD OF BED ELEVATED. WILL ENDORSED TO THE PM NURSE.
--- NOTE | 2017-09-30 19:30 | NUR ---
RN/ MS NOTES: RECEIVED PT. IN BED A/O X 2 . NO S/S OF RESPIRATORY DISTRESS NOTED. RA SAT 97. HAS NO IV ACCESS LINE PER PT. REFUSED. PT. IS AMBULATORY. CONTINENT OF B/B. CALL LIGHT W/ REACH. PT. IS ON 5150 HOLD OF 09/29/17. WILL CONTINUE TO MONITOR.
[2017-09-30] MEDS: DIVALPROEX SODIUM 125 MG CAP.SPRINK PO SCH (20:24)
[2017-09-30] MEDS: ENOXAPARIN SODIUM 30 MG/0.3 ML DISP.SYRIN SQ SCH (20:29)
[2017-09-30] MEDS: HYDROCODONE/APAP 5/325MG 1 EACH TABLET PO PRN (20:57)
[2017-09-30] MEDS ORDERED: LORAZEPAM INJ 2 MG/ML VIAL ONE (21:44)
[2017-09-30] MEDS: SIMVASTATIN 20 MG TABLET PO SCH (22:00)
--- NOTE | 2017-10-01 07:15 | NUR ---
RN/MS NOTES: PT. IN BED SLEEPING W/ RESPIRATIONS EVEN AND UNLABORED. PT. DENIED AM BLOOD DRAWN AND VITALS SIGN. REFUSED SOME MEDS WELL. REPORT GIVEN TO NEXT SHIFT NURSE FOR GUANACO.
[2017-10-01 08:00] VITALS: BP 168/83
[2017-10-01] MEDS: DIVALPROEX SODIUM 125 MG CAP.SPRINK PO SCH ×2 (09:00→21:00)
[2017-10-01] MEDS: MULTIVITAMINS,THERAGRAN 1 UDTAB TABLET PO SCH (09:52)
[2017-10-01] MEDS: OLANZAPINE 5 MG TABLET PO SCH ×2 (09:53→17:19)
[2017-10-01] MEDS: ACIDOPHILUS/BULGARICUS 1 EACH TAB.CHEW PO SCH ×3 (09:54→17:20)
[2017-10-01] MEDS: PANTOPRAZOLE 40 MG TABLET.DR PO SCH (09:54)
[2017-10-01] MEDS: ASPIRIN EC 81 MG TABLET.DR PO SCH ×3 (09:54→10:08)
[2017-10-01] MEDS: GABAPENTIN 300 MG CAPSULE PO SCH ×3 (09:54→17:20)
[2017-10-01] MEDS: ASCORBIC ACID 500 MG TABLET PO SCH (09:54)
[2017-10-01 16:00] VITALS: BP_SYST 150; BP_SYST 152; BP_DIAS 56
[2017-10-01] MEDS: TRAMADOL HCL 50 MG TABLET PO SCH (17:20)
[2017-10-01] MEDS: HYDROGEL DRESSING 90 GM TUBE TP SCH ×2 (18:47→18:49)
[2017-10-01] MEDS: SILVER SULFADIAZINE CREAM 400 GM JAR TP SCH (18:48)
--- NOTE | 2017-10-01 18:50 | NUR ---
Nurses Notes Patient showered and dressing was removed. PEOPLESOFT CONSULTANT assisted patient in shower. Dressing was done after shower, refused to have dressing done earlier, needed to shower. Medicated with Tramadol. pain was relieved. Sitter at bedside. on 5150. Patient had 2 loose stools in bed, patient kep asking to shower. feeling better after shower.
[2017-10-01] MEDS: CLOTRIMAZOLE 1% 15 GM TUBE TP SCH ×2 (18:57→18:58)
[2017-10-01 20:00] VITALS: BP 147/71
[2017-10-01] MEDS: ENOXAPARIN SODIUM 30 MG/0.3 ML DISP.SYRIN SQ SCH (21:00)
[2017-10-01] MEDS: SIMVASTATIN 20 MG TABLET PO SCH (21:29)
--- NOTE | 2017-10-01 22:00 | NUR ---
RN/MS NOTES: PT. REFUSED HER LOVENOX AND DEPAKOTE.
[2017-10-02 04:00] VITALS: BP 129/60
[2017-10-02] MEDS: PANTOPRAZOLE 40 MG TABLET.DR PO SCH (07:30)
--- NOTE | 2017-10-02 07:50 | NUR ---
RN/MS NOTES: PT. IN BED SLEEPING W/ RESPIRATIONS EVEN AND UNLABORED. REPORT GIVEN TO NEXT SHIFT NURSE FOR GUANACO.
--- NOTE | 2017-10-02 07:50 | NUR ---
MS RN: INITIAL NOTE RECEIVED PT A/OX2. CONFUSED. ON MS. BRP/ AMBULATES WITH CANE. ON CARDIAC DIET. NO IV ACCESS. PT REFUSED. ALL RISKS AND BENEFITS EXPLAINED. ON 5150 HOLD AND IS DONE ON 09/22/17. NO DISTRESS NOTED. NO SOB NOTED. NO PAIN NOTED. RESTING COMFORTABLY IN BED CALL LIGHT WITHIN REACH. 1:1 SITTER.
[2017-10-02 08:00] VITALS: BP 140/64
[2017-10-02] MEDS: DIVALPROEX SODIUM 125 MG CAP.SPRINK PO SCH ×2 (09:00→21:01)
[2017-10-02] MEDS: BENZTROPINE MESYLATE (2MG/2ML) 2 MG/2 ML AMPUL IM SCH (09:00)
[2017-10-02] MEDS: OLANZAPINE 5 MG TABLET PO SCH ×2 (09:00→16:34)
[2017-10-02] MEDS: TRAMADOL HCL 50 MG TABLET PO SCH ×3 (09:17→16:35)
[2017-10-02] MEDS: ACIDOPHILUS/BULGARICUS 1 EACH TAB.CHEW PO SCH ×3 (09:17→16:33)
[2017-10-02] MEDS: MULTIVITAMINS,THERAGRAN 1 UDTAB TABLET PO SCH (09:18)
[2017-10-02] MEDS: ASPIRIN EC 81 MG TABLET.DR PO SCH (09:18)
[2017-10-02] MEDS: GABAPENTIN 300 MG CAPSULE PO SCH ×3 (09:18→16:33)
[2017-10-02] MEDS: ASCORBIC ACID 500 MG TABLET PO SCH (09:18)
[2017-10-02] MEDS: HYDROGEL DRESSING 90 GM TUBE TP SCH ×2 (09:22)
[2017-10-02] MEDS: SILVER SULFADIAZINE CREAM 400 GM JAR TP SCH (09:22)
[2017-10-02] MEDS: CLOTRIMAZOLE 1% 15 GM TUBE TP SCH ×2 (09:23→16:42)
--- NOTE | 2017-10-02 11:10 | NUR ---
PT REFUSED IV INSERTION.
[2017-10-02 12:07] LABS: *HIV-1 RNA BY PCR <20 copies/mL (.)
[2017-10-02] MEDS: HYDROCODONE/APAP 5/325MG 1 EACH TABLET PO PRN ×2 (13:14→21:11)
[2017-10-02] MEDS ORDERED: OLANZAPINE 10 MG VIAL IM ONE (17:00)
--- NOTE | 2017-10-02 18:53 | NUR ---
MS RN: CLOSING NOTE PT A/OX2-3. REFUSED ZYPREXA IN AM AND DEPOKOTE. ALL RISKS AND BENEFITS EXPLAINED. OTHER JAIMES TOOK THE REST OF MEDS ALL DAY. SLIGHT ANGER MANAGEMENT NOTED. ON 5150 HOLD. AMBULATES WITH CANE. 1:1 SITTER. ON CARDIAC DIET. NO IV ACCES DUE TO PT REFUSAL. ALL RISKS AND BENEFITS EXPLAINED.L KNEE WOUND DRESSING DONE. NO LABS DUE TO REFUSAL SINCE 09/30. RESTING COMFORTABLY IN BED. CALL LIGHT WITHIN REACH.
--- NOTE | 2017-10-02 19:15 | NUR ---
MS RN OPENING NOTES: RECEIVED PT AND IS RESTING IN BED COMFORTABLY. PT IS A/OX2. SITTER AT BEDSIDE. PT ON 5150 HOLD. NO IV ACCESS NOTED AT THIS TIME. OFFERED TO START ONE BUT PT GOT VERBALLY COMBATIVE AND STARTED RAISING VOICE AND SAYING INAPPROPRIATE THINGS. EXPLAINED TO PT THE RISKS AND BENEFITS BUT PT STILL ANGRY. NOTED THAT PT HAS DRESSING ON L KNEE. NOTED CLEAN AND DRY. CALL LIGHT WITHIN PT'S REACH. BED KEPT IN LOW, LOCKED POSITION, AND SIDE RAILS X 2UP. WILL CONTINUE TO MONITOR PT.
[2017-10-02 20:00] VITALS: BP 133/63
[2017-10-02] MEDS: ENOXAPARIN SODIUM 30 MG/0.3 ML DISP.SYRIN SQ SCH (21:00)
[2017-10-02] MEDS: SIMVASTATIN 20 MG TABLET PO SCH (21:01)
[2017-10-02] MEDS: OLANZAPINE 5 MG TABLET PO PRN (21:01)
--- NOTE | 2017-10-02 21:07 | NUR ---
MS RN NOTES: PT VERY VERBALLY COMBATIVE. PT IS REFUSING HER DEPAKOTE AFTER BEING EXPLAINED THE RISKS AND BENEFITS. WAS ALREADY SCANNED BUT PT DID NOT TAKE IT. PT SAYING "I AM ALLERGIC TO THAT." PT REFUSING LOVENOX WELL AFTER BEING EXPLAINED THE RISKS AND BENEFITS. CHARGE NURSE AWARE. WILL CONTINUE TO MONITOR.
--- NOTE | 2017-10-02 21:07 | NUR ---
MS RN NOTES: PT OFFERED WHEN SHE WOULD LIKE HER L KNEE WOUND CHANGED BUT PT SAID THAT IT WAS STILL CLEAN. WILL TRY AGAIN AT ANOTHER TIME.
--- NOTE | 2017-10-02 21:10 | NUR ---
MS RN NOTES: PT REFUSING IV INSERTION. PT GETTING AGITATED ABOUT THINGS SHE DOES NOT LIKE OR BELIEVE IN.
--- NOTE | 2017-10-02 21:12 | NUR ---
MS RN NOTES: PT WAS VERY AGITATED. PT'S OLANZAPINE 5MG WAS BEING ADMINISTERED TO HER BUT PT REFUSED. GOT VERBALLY COMBATIVE AND SAID SHE DIDN'T WANT IT. WILL CONTINUE TO MONITOR PT.
--- NOTE | 2017-10-02 22:45 | NUR ---
MS RN NOTES: SPOKE WITH DR. OLVIN Nielsen AND INFORMED HIM ABOUT PT REFUSING LOVENOX. MADE AWARE.
[2017-10-03 01:11] VITALS: BP 147/76
[2017-10-03] MEDS: HYDROCODONE/APAP 5/325MG 1 EACH TABLET PO PRN (01:14)
--- NOTE | 2017-10-03 07:00 | NUR ---
MS RN CLOSING NOTES: ALL NEEDS WERE ATTENDED AND ANTICIPATED FOR. PT IS RESTING IN BED COMFORTABLY AND IS ASLEEP. PT IS A/OX2. SITTER AT BEDSIDE. PT ON 5150 HOLD. NO IV ACCESS NOTED AT THIS TIME. PT REFUSED. NOTED THAT PT HAS DRESSING ON L KNEE. NOTED CLEAN AND DRY. CALL LIGHT WITHIN PT'S REACH. BED KEPT IN LOW, LOCKED POSITION, AND SIDE RAILS X 2UP. WILL ENDORSE TO AM NURSE FOR GUANACO.
[2017-10-03] MEDS: PANTOPRAZOLE 40 MG TABLET.DR PO SCH (07:30)
--- NOTE | 2017-10-03 07:50 | NUR ---
MS RN OPENING NOTE RECEIVED BEDSIDE SBAR REPORT ON THE PATIENT. PATIENT IS A/OX2, CONFUSED, ASLEEP, EASILY AWAKEN. PATIENT IS ON 5150 HOLD WITH A SITTER AT THE BEDSIDE. PATIENT REFUSED IV INSERTION AND CURRENTLY HAS NO IV ACCESS. MD IS AWARE. BED IS LOCKED, IN LOWEST POSITION SIDE RAILS UP X2. CALL LIGHT WITHIN REACH. PATIENT EDUCATED TO USE THE CALL LIGHT TO CALL FOR ASSISTANCE. WILL CONTINUE TO MONITOR/ASSESS THE PATIENT THROUGHOUT THE SHIFT.
[2017-10-03 08:00] VITALS: BP 147/76
--- NOTE | 2017-10-03 08:15 | NUR ---
MS RN NOTE PATIENT IS SLEEPING. ATTEMPTED TO AWAKEN THE PATIENT TO TAKE THE DUE MEDICATIONS. PATIENT REFUSED TO WAKE UP AND REFUSED THE MEDICATIONS.
[2017-10-03] MEDS: OLANZAPINE 5 MG TABLET PO SCH ×2 (09:00→16:50)
[2017-10-03] MEDS: SILVER SULFADIAZINE CREAM 400 GM JAR TP SCH (09:00)
[2017-10-03] MEDS: HYDROGEL DRESSING 90 GM TUBE TP SCH ×2 (09:00)
[2017-10-03] MEDS: DIVALPROEX SODIUM 125 MG CAP.SPRINK PO SCH (09:00)
--- NOTE | 2017-10-03 09:06 | NUR ---
MS RN NOTE ATTEMPTED TO ADMINISTER MEDICATIONS. PATIENT REFUSED TO HILARY IP AND REFUSED TO TAKE MEDICATIONS.
--- NOTE | 2017-10-03 09:45 | NUR ---
PATIENT REFUSED WOUND CARE. THE DRESSING APPEARS O BE CLEAN AND DRY. RISKS AND BENEFITS DISCUSSED. PATIENT REFUSED.
[2017-10-03] MEDS: CLOTRIMAZOLE 1% 15 GM TUBE TP SCH ×2 (09:46→16:50)
[2017-10-03] MEDS: TRAMADOL HCL 50 MG TABLET PO SCH ×3 (09:48→16:48)
[2017-10-03] MEDS: MULTIVITAMINS,THERAGRAN 1 UDTAB TABLET PO SCH (09:50)
[2017-10-03] MEDS: GABAPENTIN 300 MG CAPSULE PO SCH ×3 (09:50→16:49)
[2017-10-03] MEDS: ASCORBIC ACID 500 MG TABLET PO SCH (09:50)
[2017-10-03] MEDS: ACIDOPHILUS/BULGARICUS 1 EACH TAB.CHEW PO SCH ×3 (09:51→16:48)
--- NOTE | 2017-10-03 10:06 | NUR ---
PATIENT AGREED TO TAKE SOME OF THE MEDICATION. REFUSED DEPAKOTE AND OLANZAPINE STATING ' I AM NOT PSYCHOTIC, I DO NOT NEED THOSE DRUGS". RISKS AND BENEFITS DISCUSSED. EDUCATION PROVIDED.
--- NOTE | 2017-10-03 12:49 | NUR ---
PATIENT IS MEDICALLY CLEARED BY DR ALMANZA. CHARGE NURSE STEVE AWARE. DR LIRIANO AWARE. DR LIRIANO AT THE BEDSIDE. PER DR LIRIANO PATIENT TO BE TRANSFERRED TO [facility]
--- NOTE | 2017-10-03 17:45 | NUR ---
called [facility] to give telephone report. Was told to call back in 30 minutes
--- NOTE | 2017-10-03 17:58 | NUR ---
PATIENT SHOWERED. WOUND DRESSING CHANGED. PATIENT TOLERATED THE PROCEDURE WELL.
--- NOTE | 2017-10-03 18:00 | NUR ---
MS REMNANT SORTER NOTE PATIENT IS A/OX3,AWAKE, ANXIOUS AND AGITATED. PATIENT IS ON 5150 HOLD WITH A SITTER AT THE BEDSIDE. CURRENTLY HAS NO IV ACCESS. DISCHARGE INSTRUCTIONS DISCUSSED WITH THE PATIENT AND EDUCATION PROVIDED VIA TEACH BACK METHOD. PATIENT REFUSED BELONGINGS COUNT ON THE ADMISSION WELL ON DISCHARGE. L/KNEE DRESSING CHANGE WAS COMPLETED ORDERED. PATIENT IS AMBULATORY, PRESENTS WITH STABLE GAIN. CHEST RISING EQUALLY BILATERALLY. ALL DUE MEDICATIONS ADMINISTERED, EXCEPT FOR THE ONES THAT PATIENT REFUSED. PATIENT DENIES PAIN/DISCOMFORT AT THIS TIME. ALL NEEDS ARE ATTENDED TO. WILL ENDORSE TO [facility] NURSE FOR GUANACO.
--- NOTE | 2017-10-03 18:28 | NUR ---
TELEPHONE SBAR REPORT GIVEN TO DIEGO AT [facility] FOR GUANACO.
[2017-10-04] MEDS ORDERED: CICL6.6S5 TP (05:51)
== END 2017-10-03 18:43 | DRG 682 ==
LOC: ER 21:45 → TELE1 09-29 00:17 → MEDSG1 09-29 18:48
DX: N17.0 Acute kidney failure with tubular necrosis (principal); G93.41 Metabolic encephalopathy; E87.5 Hyperkalemia; E87.1 Hypo-osmolality and hyponatremia; F25.0 Schizoaffective disorder, bipolar type; L97.829 Non-pressure chronic ulcer of other part of left lower leg with unspecified severity; B35.1 Tinea unguium; I10 Essential (primary) hypertension; Z79.82 Long term (current) use of aspirin; Z79.899 Other long term (current) drug therapy; D50.0 Iron deficiency anemia secondary to blood loss (chronic); E66.9 Obesity, unspecified; Z91.14 Patient's other noncompliance with medication regimen; Z59.0 Homelessness; K21.9 Gastro-esophageal reflux disease without esophagitis; I70.0 Atherosclerosis of aorta; E78.5 Hyperlipidemia, unspecified; E86.9 Volume depletion, unspecified; T39.395A Adverse effect of other nonsteroidal anti-inflammatory drugs [NSAID], initial encounter; Y92.009 Unspecified place in unspecified non-institutional (private) residence as the place of occurrence of the external cause; R73.9 Hyperglycemia, unspecified; L84 Corns and callosities
CPT/HCPCS: 36415; 80048-TC; 80061-TC; 80076-TC; 82272-TC; 82550-TC; 83690-TC; 83735-TC; 84100-TC; 84443-TC; 84484-TC; 85025-TC; 87081-TC; 87536; 93307-TC; A4606; A6248; A6253; J0515; J1650; J2060; J3490; J7030; Z7610

== ENCOUNTER 2017-10-03 19:53 | Inpatient (IN) | payer MEDICARE, OTHER ==
[~2017-10-03] VITALS: Ht 162.6 cm; Wt 67.1 kg
--- NOTE | 2017-10-03 19:00 | NUR ---
[facility] RN NOTE: RECEIVED PATIENT ASLEEP IN BED, ARAUSABLE TO VERBAL AND TACTILE STIMULI, NO SOB, NO ACUTE DISTRESS, BREATHING EVEN AND UNLABORED,NO S/S OF PAIN AND DISCOMFORT, WILL CONTINUE TO MONITOR [id number] FOR SAFETY.
[2017-10-03] MEDS ORDERED: ACETAMINOPHEN 325 MG TABLET PO PRN ×2 (20:30)
[2017-10-03] MEDS ORDERED: LORAZEPAM 0.5 MG TABLET PO PRN (20:30)
[2017-10-03] MEDS ORDERED: MAGNESIUM HYDROXIDE 30 ML UDC PO PRN ×2 (20:30)
[2017-10-03 21:52] VITALS: BP 113/64
[2017-10-03] MEDS: SIMVASTATIN 20 MG TABLET PO SCH (22:00)
[2017-10-03] MEDS ORDERED: ONDANSETRON HCL/PF 4 MG/2 ML VIAL ONE (22:52)
[2017-10-03] MEDS ORDERED: MORPHINE SULFATE INJ 4 MG/ML DISP.SYRIN ONE (22:53)
--- NOTE | 2017-10-03 23:25 | NUR ---
ADMITTED A 72 Y/O FEMALE FROM [facility], ON 5249 HOLD GRAVELY DISABLED. TRANSFERRED VIA WHEELCHAIR. ADMITTING DX. PSYCHOSIS, BIPOLAR, SCHIZOPHRENIA AND MEDICAL DX. OF ARF, ANEMIA, CHRONIC WOUND ON THE LEFT KNEE. UPON FACE TO FACE EVAL, PATIENT APPEARED TENSE, ALERT AND ORIENTED X 3, HYPERVERBAL, NEEDY, DEMANDING, PARANOID, EASILY AGITATED, FOCUSED ON WANTING TO HAVE A TEST FOR HIV, PAP SMEAR AND WANT TO ALSO BE SEEN BY AN EYE DOCTOR. NO SOB, NO ACUTE DISTRESS, BREATHING EVEN AND UNLABORED, NO S/S OF PAIN AND DISCOMFORT. FULL CODE AND HAS NO KNOWN ALLERGY. PATIENT HAS NO RESPONSIBLE GREEN PARTY. ALL BELONGINGS AND CONTRABAND INSPECTED AND PLACED TO SAFE. NOTIFIED DR. BAH TO RECONCILE MEDICATIONS. NOTIFIED DR. LIRIANO OF THE ADMISSION. PATIENT ORIENTED TO THE UNIT. SNACKS GIVEN AND APPRECIATED. KEPT CLEAN, DRY AND COMFORTABLE, WILL CONTINUE TO MONITOR 15 MINS FOR SAFETY. Addendum: 10/04/17 at 0248 by SUE CEDENO II, RN ADDENDUM: PATIENT REFUSED BODY CHECK , PER PATIENT HER LEFT KNEE WOUND IS NEWLY DRESSED, WOUND CONSULT TRIGGERED
[2017-10-03] MEDS ORDERED: SIMVASTATIN 20 MG TABLET ONE (23:47)
[2017-10-04 01:19] VITALS: BP 115/69
[2017-10-04] MEDS ORDERED: CICL6.6S5 TP (05:51)
[2017-10-04 07:03] LABS: CREATININE 1.1 mg/dL (0.6-1.3)
[2017-10-04 07:11] LABS: CHOLESTEROL 191 mg/dL (<200); HDL CHOLESTEROL 40 mg/dL (40-60); LDL 68 mg/dL (0-99); TRIGLYCERIDES 382 mg/dL (30-150)
[2017-10-04] MEDS: NAPROXEN 500 MG TABLET PO SCH ×2 (08:39→17:05)
[2017-10-04] MEDS: PANTOPRAZOLE 40 MG TABLET.DR PO SCH (08:40)
[2017-10-04] MEDS: ASPIRIN EC 81 MG TABLET.DR PO SCH (08:40)
[2017-10-04] MEDS: HYDROCODONE/APAP 5/325MG 1 EACH TABLET PO PRN (08:40)
[2017-10-04] MEDS ORDERED: CLINDAMYCIN HCL 150 MG CAPSULE PO SCH (09:00)
[2017-10-04] MEDS: CLOTRIMAZOLE 1% 15 GM TUBE TP SCH ×2 (09:00→18:22)
[2017-10-04] MEDS ORDERED: FLUCONAZOLE (100 MG) 100 MG TABLET PO SCH (09:00)
[2017-10-04] MEDS ORDERED: SILVER SULFADIAZINE CREAM 400 GM JAR TP SCH (09:00)
[2017-10-04] MEDS: ACIDOPHILUS/BULGARICUS 1 EACH TAB.CHEW PO SCH ×3 (09:39→17:05)
--- NOTE | 2017-10-04 11:29 | NUR ---
WOUND CARE CONSULT: PT PRESENTS AMBULATORY AND CONTINENT WITH LEFT KNEE WOUND AND LEFT HEEL FRAGILE SCAR, PRESENT ON ADMISSION. CURRENT ZO SCORE IS 19. ALL SKIN PROTECTION AND WOUND RECOMMENDATIONS DISCUSSED WITH NURSING STAFF. WILL SEE PRN. IRVING IN AGREEMENT WITH PLAN OF CARE. Addendum: 10/04/17 at 1130 by LUC RODRIGUEZ WNDNU Amended: Links added.
[2017-10-04] MEDS ORDERED: Z GUARD REMEDY 2 OZ OINT TP PRN (11:30)
[2017-10-04] MEDS ORDERED: HYDROGEL DRESSING 90 GM TUBE TP PRN (11:30)
[2017-10-04] MEDS: DIVALPROEX SODIUM 250 MG TABLET.DR PO SCH ×2 (13:35→17:05)
[2017-10-04] MEDS: HYDROGEL DRESSING 90 GM TUBE TP SCH (13:40)
[2017-10-04] MEDS: OLANZAPINE 5 MG/TAB.RAPDIS PO SCH ×2 (13:58→22:14)
--- NOTE | 2017-10-04 14:00 | NUR ---
GPS/RN DR SHEPHERD AWARE OF NEED TO RECONCILE MEDICATIONS, AWAITING INPUT IN SYSTEM.
--- NOTE | 2017-10-04 15:00 | NUR ---
[facility]PS/RN GYN RENDERED ORDERED.
--- NOTE | 2017-10-04 15:00 | NUR ---
GPS/RN PATIENT REFUSED SKIN PICTURES X 3, EXPLAINED RISKS AND BENEFITS, WILL CONTINUE TO ENCOURAGE PATIENT TO ALLOW STAFF TO TAKE SKIN PHOTOS.
[2017-10-04 16:16] VITALS: BP 130/81
[2017-10-04 20:00] VITALS: BP 119/59
[2017-10-04] MEDS: SIMVASTATIN 20 MG TABLET PO SCH (22:15)
--- NOTE | 2017-10-05 06:51 | NUR ---
[facility] RN NOTE: PATIENT REFUSED TREATMENT AND PICTURES. PATIENT REQUESTED TO DO IT ON THE DAY TIME AFTER HER SHOWER. WILL ENDORSE TO THE NEXT SHIFT.
[2017-10-05] MEDS: PANTOPRAZOLE 40 MG TABLET.DR PO SCH (07:30)
[2017-10-05 08:00] VITALS: BP 139/69
[2017-10-05] MEDS: HYDROGEL DRESSING 90 GM TUBE TP SCH ×3 (09:00→17:35)
[2017-10-05] MEDS: NAPROXEN 500 MG TABLET PO SCH ×2 (09:40→17:29)
[2017-10-05] MEDS: ACIDOPHILUS/BULGARICUS 1 EACH TAB.CHEW PO SCH ×3 (09:40→17:00)
[2017-10-05] MEDS: ASPIRIN EC 81 MG TABLET.DR PO SCH (09:40)
[2017-10-05] MEDS: CLOTRIMAZOLE 1% 15 GM TUBE TP SCH ×2 (09:43→17:00)
[2017-10-05] MEDS: DIVALPROEX SODIUM 250 MG TABLET.DR PO SCH ×3 (09:45→17:29)
[2017-10-05] MEDS: HYDROCODONE/APAP 5/325MG 1 EACH TABLET PO PRN (10:44)
[2017-10-05 15:59] VITALS: BP 155/74
[2017-10-05 20:52] VITALS: BP 135/61
[2017-10-05] MEDS: SIMVASTATIN 20 MG TABLET PO SCH (21:46)
[2017-10-05] MEDS ORDERED: OLANZAPINE 5 MG/TAB.RAPDIS PO SCH (22:00)
[2017-10-06] MEDS: HYDROCODONE/APAP 5/325MG 1 EACH TABLET PO PRN ×3 (00:27→22:22)
[2017-10-06 07:04] LABS: BASOPHILS % (AUTO) 0.4 % (0.0-2.0); EOSINOPHILS # (AUTO) 0.4 /CMM (0.0-0.7); EOSINOPHILS % (AUTO) 6.6 % (0.0-6.0); HEMATOCRIT 23 % (33-45); HEMOGLOBIN 7.5 g/dL (11.5-14.8); LYMPHOCYTES % (AUTO) 29.5 % (20.0-44.0); MEAN CORPUSCULAR HEMOGLOBIN 27 PG (26.0-33.0); MEAN CORPUSCULAR HGB CONC 33 g/dl (31.0-36.0); MEAN CORPUSCULAR VOLUME 82 fL (82-100); MONOCYTES # (AUTO) 0.6 /CMM (0.1-1.30); MONOCYTES % (AUTO) 8.1 % (2.0-12.0); NEUTROPHILS # (AUTO) 3.8 /CMM (1.8-8.9); NEUTROPHILS % (AUTO) 55.4 % (43.0-81.0); PLATELET COUNT (AUTO) 319 /CMM (150-450); RDW COEFFICIENT OF VARIATION 17.7 (11.5-15.0); RED BLOOD CELL COUNT(AUTO) 2.74 MIL/uL (4.0-5.2); WHITE BLOOD COUNT (AUTO) 6.8 K/uL (4.3-11.0)
[2017-10-06 07:18] LABS: CALCIUM, SERUM 9.4 mg/dL (8.5-10.1); CREATININE 1.1 mg/dL (0.6-1.3); MAGNESIUM 1.7 mg/dL (1.8-2.4); PHOSPHORUS 4.4 mg/dL (2.5-4.9); POTASSIUM 4.3 mmol/L (3.5-5.1)
[2017-10-06 08:00] VITALS: BP 124/53
[2017-10-06] MEDS: NAPROXEN 500 MG TABLET PO SCH ×2 (09:11→16:13)
[2017-10-06] MEDS: DIVALPROEX SODIUM 250 MG TABLET.DR PO SCH ×3 (09:11→16:13)
[2017-10-06] MEDS: ACIDOPHILUS/BULGARICUS 1 EACH TAB.CHEW PO SCH ×3 (09:11→16:13)
[2017-10-06] MEDS: ASPIRIN EC 81 MG TABLET.DR PO SCH (09:11)
[2017-10-06] MEDS: PANTOPRAZOLE 40 MG TABLET.DR PO SCH (09:11)
[2017-10-06] MEDS: HYDROGEL DRESSING 90 GM TUBE TP SCH (09:12)
[2017-10-06] MEDS: CLOTRIMAZOLE 1% 15 GM TUBE TP SCH ×2 (09:12→17:34)
--- NOTE | 2017-10-06 09:20 | NUR ---
[facility]PS/RN PATIENT REPORTS 9/10 GENERALIZED PAIN, ADMINISTERED NORCO PO 5/325 1 TAB PER PATIENT REQUEST. WILL CONTINUE TO MONITOR.
--- NOTE | 2017-10-06 09:30 | NUR ---
GPS/BLOW MOLDING MACHINE TENDER RENDERED ORDERED.
[2017-10-06] MEDS ORDERED: MAGNESIUM OXIDE 400 MG TABLET PO ONE (10:30)
--- NOTE | 2017-10-06 15:14 | NUR ---
Initial Discharge Plan: Patient is currently homeless. Patient adamantly states that she does not wish for SW to secure any placement for her. Patient states, "I know my way around the streets...i am working on housing myself..." SW attempted to engage patient in a discussion of alternative placement options and patient stated, "that is stupid...I don't want any placement." SW will attempt to revisit this subject later. SW will coordinate with entire treatment team and will facilitate safe and proper discharge.
[2017-10-06 16:00] VITALS: BP 129/83
[2017-10-06 20:00] VITALS: BP 144/70
[2017-10-06] MEDS: SIMVASTATIN 20 MG TABLET PO SCH (22:21)
[2017-10-06] MEDS: OLANZAPINE 5 MG/TAB.RAPDIS PO SCH (22:21)
[2017-10-06] MEDS: TEMAZEPAM 7.5 MG CAPSULE PO PRN (22:21)
[2017-10-07 08:00] VITALS: BP 132/60
[2017-10-07] MEDS: ASPIRIN EC 81 MG TABLET.DR PO SCH (08:54)
[2017-10-07] MEDS: ACIDOPHILUS/BULGARICUS 1 EACH TAB.CHEW PO SCH ×4 (08:54→17:01)
[2017-10-07] MEDS: PANTOPRAZOLE 40 MG TABLET.DR PO SCH (08:54)
[2017-10-07] MEDS: DIVALPROEX SODIUM 250 MG TABLET.DR PO SCH ×3 (08:54→17:01)
[2017-10-07] MEDS: NAPROXEN 500 MG TABLET PO SCH ×2 (08:56→17:01)
[2017-10-07] MEDS: HYDROCODONE/APAP 5/325MG 1 EACH TABLET PO PRN ×2 (10:49→22:36)
[2017-10-07] MEDS: HYDROGEL DRESSING 90 GM TUBE TP SCH (10:50)
[2017-10-07] MEDS: CLOTRIMAZOLE 1% 15 GM TUBE TP SCH ×2 (10:51→17:04)
[2017-10-07 16:00] VITALS: BP 121/69
[2017-10-07 20:00] VITALS: BP 127/78
[2017-10-07] MEDS: SIMVASTATIN 20 MG TABLET PO SCH (22:32)
[2017-10-07] MEDS: OLANZAPINE 5 MG/TAB.RAPDIS PO SCH (22:33)
[2017-10-07] MEDS: TEMAZEPAM 7.5 MG CAPSULE PO PRN (22:39)
[2017-10-08 08:00] VITALS: BP 128/65
[2017-10-08] MEDS: PANTOPRAZOLE 40 MG TABLET.DR PO SCH (08:46)
[2017-10-08] MEDS: DIVALPROEX SODIUM 250 MG TABLET.DR PO SCH ×3 (09:18→16:42)
[2017-10-08] MEDS: NAPROXEN 500 MG TABLET PO SCH ×2 (09:18→16:42)
[2017-10-08] MEDS: ASPIRIN EC 81 MG TABLET.DR PO SCH (09:18)
[2017-10-08] MEDS: ACIDOPHILUS/BULGARICUS 1 EACH TAB.CHEW PO SCH ×3 (09:18→16:42)
[2017-10-08] MEDS: HYDROGEL DRESSING 90 GM TUBE TP SCH (09:24)
[2017-10-08] MEDS: CLOTRIMAZOLE 1% 15 GM TUBE TP SCH ×2 (09:24→17:18)
--- NOTE | 2017-10-08 09:30 | NUR ---
GPS/RN-NOTES DID WOUND TREATMENT ON LEFT LOWER EXTREMITIES ORDERED.
[2017-10-08 16:00] VITALS: BP 151/67
[2017-10-08 20:00] VITALS: BP 136/84
--- NOTE | 2017-10-08 20:53 | NUR ---
LAB CALLED TO CHECK IF BMP AND CBC TO MADI DRAWN TONIGHT.
[2017-10-08] MEDS: SIMVASTATIN 20 MG TABLET PO SCH (21:59)
[2017-10-08] MEDS: OLANZAPINE 5 MG/TAB.RAPDIS PO SCH (21:59)
[2017-10-08] MEDS: HYDROCODONE/APAP 5/325MG 1 EACH TABLET PO PRN (23:53)
[2017-10-09 07:44] LABS: CALCIUM, SERUM 9.2 mg/dL (8.5-10.1); CREATININE 1.1 mg/dL (0.6-1.3); POTASSIUM 4.5 mmol/L (3.5-5.1)
[2017-10-09 07:45] LABS: BASOPHILS % (AUTO) 0.2 % (0.0-2.0); EOSINOPHILS # (AUTO) 0.5 /CMM (0.0-0.7); EOSINOPHILS % (AUTO) 7.8 % (0.0-6.0); HEMATOCRIT 26 % (33-45); HEMOGLOBIN 8.6 g/dL (11.5-14.8); LYMPHOCYTES # (AUTO) 1.2 /CMM (0.8-4.8); LYMPHOCYTES % (AUTO) 17.1 % (20.0-44.0); MEAN CORPUSCULAR HEMOGLOBIN 26 PG (26.0-33.0); MEAN CORPUSCULAR HGB CONC 32 g/dl (31.0-36.0); MEAN CORPUSCULAR VOLUME 80 fL (82-100); MONOCYTES # (AUTO) 0.5 /CMM (0.1-1.30); MONOCYTES % (AUTO) 7.6 % (2.0-12.0); NEUTROPHILS # (AUTO) 4.6 /CMM (1.8-8.9); NEUTROPHILS % (AUTO) 67.3 % (43.0-81.0); PLATELET COUNT (AUTO) 392 /CMM (150-450); RDW COEFFICIENT OF VARIATION 17.1 (11.5-15.0); RED BLOOD CELL COUNT(AUTO) 3.28 MIL/uL (4.0-5.2); WHITE BLOOD COUNT (AUTO) 6.8 K/uL (4.3-11.0)
[2017-10-09 08:00] VITALS: BP 140/62
[2017-10-09] MEDS: ACIDOPHILUS/BULGARICUS 1 EACH TAB.CHEW PO SCH ×4 (08:14→17:00)
[2017-10-09] MEDS: DIVALPROEX SODIUM 250 MG TABLET.DR PO SCH ×4 (08:14→16:56)
[2017-10-09] MEDS: PANTOPRAZOLE 40 MG TABLET.DR PO SCH (08:14)
[2017-10-09] MEDS: ASPIRIN EC 81 MG TABLET.DR PO SCH (08:14)
[2017-10-09] MEDS: NAPROXEN 500 MG TABLET PO SCH ×2 (08:14→16:56)
[2017-10-09] MEDS: HYDROGEL DRESSING 90 GM TUBE TP SCH (08:16)
[2017-10-09] MEDS: HYDROCODONE/APAP 5/325MG 1 EACH TABLET PO PRN (08:56)
[2017-10-09] MEDS: CLOTRIMAZOLE 1% 15 GM TUBE TP SCH ×2 (09:00→17:22)
[2017-10-09] MEDS: OLANZAPINE 5 MG/TAB.RAPDIS PO SCH ×3 (12:00→22:00)
--- NOTE | 2017-10-09 13:48 | NUR ---
RN-CO: Patient refused Zyprexa and Depakote in the afternoon, patient stated " I don't want to be knocked out."
--- NOTE | 2017-10-09 13:53 | NUR ---
ASSUMED CARE, RECEIVED PT. ASLEEP IN THE COUCH IN THE DINING ROOM AND AROUSABLE. PT. WAS REFUSING ON DEPAKOTE AND ZYPREXA PO. NO DISTRESS AND NO AGITATION NOTED. WILL CONTINUE TO MONITOR FOR SAFETY.
[2017-10-09 16:05] VITALS: BP 119/59
--- NOTE | 2017-10-09 16:51 | NUR ---
JAVY ROMERO NOTIFIED THAT PT. VOMITTED AND ORDERED ZOFRAN ODT 1 TAB Q8 HRS PRN FOR VOMITING.
[2017-10-09] MEDS: ONDANSETRON 4 MG TAB.RAPDIS PO PRN (16:57)
[2017-10-09 21:21] VITALS: BP 142/79
[2017-10-09] MEDS: MAG HYDROX/AL HYDROX/SIMETH 30 ML UDC PO PRN (21:43)
[2017-10-09] MEDS: SIMVASTATIN 20 MG TABLET PO SCH (22:00)
--- NOTE | 2017-10-09 23:17 | NUR ---
[facility]PS RN: PATIENT REFUSED HER SCHEDULED MEDICATIONS, FOR REASONS THAT SHE FEEL NAUSEOUS UP TO THIS TIME. ZOFRAN MEDICATION IS NOT DUE YET. HOWEVER PATIENT WISHES TO BE NPO THIS TIME.PROVIDED HER WITH AN EMESIS BAG.SHE HASN'T REALLY VOMITED ANYTHING OF THIS TIME. WILL CONTINUE TO MONITOR PATIENT.
[2017-10-10] MEDS: ONDANSETRON 4 MG TAB.RAPDIS PO PRN (01:29)
[2017-10-10 08:00] VITALS: BP 126/56
[2017-10-10] MEDS: PANTOPRAZOLE 40 MG TABLET.DR PO SCH (08:41)
[2017-10-10] MEDS: ASPIRIN EC 81 MG TABLET.DR PO SCH (09:00)
[2017-10-10] MEDS: DIVALPROEX SODIUM 250 MG TABLET.DR PO SCH ×4 (09:00→21:53)
[2017-10-10] MEDS: NAPROXEN 500 MG TABLET PO SCH ×2 (09:00→16:18)
[2017-10-10] MEDS: ACIDOPHILUS/BULGARICUS 1 EACH TAB.CHEW PO SCH ×3 (09:00→16:18)
[2017-10-10] MEDS: OLANZAPINE 5 MG/TAB.RAPDIS PO SCH ×2 (09:03→21:54)
[2017-10-10] MEDS: HYDROGEL DRESSING 90 GM TUBE TP SCH (09:52)
[2017-10-10] MEDS: CLOTRIMAZOLE 1% 15 GM TUBE TP SCH ×2 (09:53→16:37)
[2017-10-10] MEDS ORDERED: DIVALPROEX SODIUM 250 MG TABLET.DR PO SCH (13:00)
[2017-10-10 16:04] VITALS: BP 136/69
[2017-10-10 20:05] VITALS: BP 133/52
[2017-10-10] MEDS: SIMVASTATIN 20 MG TABLET PO SCH (21:53)
[2017-10-10] MEDS: MAG HYDROX/AL HYDROX/SIMETH 30 ML UDC PO PRN (21:58)
[2017-10-10] MEDS: HYDROCODONE/APAP 5/325MG 1 EACH TABLET PO PRN (23:37)
[2017-10-11] MEDS: PANTOPRAZOLE 40 MG TABLET.DR PO SCH (07:30)
[2017-10-11 08:00] VITALS: BP 128/63
[2017-10-11 08:15] LABS: BASOPHILS % (AUTO) 0.3 % (0.0-2.0); EOSINOPHILS # (AUTO) 0.6 /CMM (0.0-0.7); EOSINOPHILS % (AUTO) 5.8 % (0.0-6.0); HEMATOCRIT 25 % (33-45); LYMPHOCYTES # (AUTO) 1.6 /CMM (0.8-4.8); LYMPHOCYTES % (AUTO) 15.8 % (20.0-44.0); MEAN CORPUSCULAR HEMOGLOBIN 26 PG (26.0-33.0); MEAN CORPUSCULAR HGB CONC 33 g/dl (31.0-36.0); MEAN CORPUSCULAR VOLUME 80 fL (82-100); MONOCYTES % (AUTO) 10.1 % (2.0-12.0); NEUTROPHILS # (AUTO) 6.8 /CMM (1.8-8.9); PLATELET COUNT (AUTO) 385 /CMM (150-450); RED BLOOD CELL COUNT(AUTO) 3.09 MIL/uL (4.0-5.2)
[2017-10-11 09:08] LABS: CALCIUM, SERUM 8.4 mg/dL (8.5-10.1); CREATININE 1.3 mg/dL (0.6-1.3); POTASSIUM 4.5 mmol/L (3.5-5.1)
[2017-10-11] MEDS: DIVALPROEX SODIUM 250 MG TABLET.DR PO SCH ×4 (09:36→21:14)
[2017-10-11] MEDS: OLANZAPINE 5 MG/TAB.RAPDIS PO SCH ×2 (09:36→21:14)
[2017-10-11] MEDS: ACIDOPHILUS/BULGARICUS 1 EACH TAB.CHEW PO SCH ×3 (09:36→16:27)
[2017-10-11] MEDS: NAPROXEN 500 MG TABLET PO SCH ×2 (09:37→16:27)
[2017-10-11] MEDS: ASPIRIN EC 81 MG TABLET.DR PO SCH (09:37)
[2017-10-11] MEDS: CLOTRIMAZOLE 1% 15 GM TUBE TP SCH ×2 (09:38→16:27)
[2017-10-11] MEDS: HYDROGEL DRESSING 90 GM TUBE TP SCH (09:38)
[2017-10-11 15:48] VITALS: BP 105/68
[2017-10-11 20:48] VITALS: BP 104/66
[2017-10-11] MEDS: SIMVASTATIN 20 MG TABLET PO SCH (21:15)
[2017-10-11] MEDS: HYDROCODONE/APAP 5/325MG 1 EACH TABLET PO PRN (22:36)
[2017-10-12] MEDS: PANTOPRAZOLE 40 MG TABLET.DR PO SCH (07:30)
[2017-10-12] MEDS: OLANZAPINE 5 MG/TAB.RAPDIS PO SCH (09:23)
[2017-10-12] MEDS: ACIDOPHILUS/BULGARICUS 1 EACH TAB.CHEW PO SCH ×2 (09:25→13:00)
[2017-10-12] MEDS: DIVALPROEX SODIUM 250 MG TABLET.DR PO SCH ×2 (09:25→13:00)
[2017-10-12] MEDS: ASPIRIN EC 81 MG TABLET.DR PO SCH (09:25)
[2017-10-12] MEDS: NAPROXEN 500 MG TABLET PO SCH (09:28)
[2017-10-12] MEDS: HYDROGEL DRESSING 90 GM TUBE TP SCH (09:29)
[2017-10-12] MEDS: CLOTRIMAZOLE 1% 15 GM TUBE TP SCH (09:29)
[2017-10-12 09:42] VITALS: BP 100/62
--- NOTE | 2017-10-12 09:44 | NUR ---
Discharge Plan: Patient will be discharged today around 1pm. During several conversations with the SW, patient refused any placement options, which included Alf Facilities, board and cares, and alf options. Patient signed a Homeless Patient Waiver due to the fact that she wanted to secure her own living arrangements. Patient had no family to notify, but stated that she has many friends who [she] can call. SW asked patient if it was okay for the SW to reach out to any of patients contacts/friends. Patient stated that she does not want SW contacting anyone. Upon discharge, patient denied visual and auditory hallucinations. Patient denied suicidal and homicidal ideation. Patient was alert and oriented x4. Patient had no complaints/ distress at time of discharge and was calm. Patient stated that she was glad to be leaving the hospital, as she had "many things to take care of." Patient adamantly stated that she does not want SW to arrange any follow-up appointments for her and that she does not want any placement. SW provided patient with a list of winter shelters and with bus tokens. SW also provided resources for mental health services: [facility] [address] [place], [place] [address] [facility] [place] [address] [facility] [another location] [address] [facility] and SW also provided patient with health care resources: [facility] [address] [facility] [address] [facility] [address] [facility]
--- NOTE | 2017-10-12 15:37 | NUR ---
ELECTRICAL ACCESSORIES ASSEMBLER NOTE:PATIENT ALERT ,VERBALLY RESPONSIVE ,AMBULATORY AND SELF CARE ,DENIES SI/HI/AVH .VS STABLE ,NO S/S OF DISCOMFORT NOTED ,ALL DISCHARGE INSTRUCTION GIVEN TO PATIENT AND ABLE TO VERBALIZE UNDERSTANDING. ALL BELONGINGS RETURNED TO PATIENT ,PATIENT REFUSED DISCHARGE PICTURE .PATIENT SEEN BY FOR GI CONSULT RECOMMENDED SHE FOLLOW UP WITH ARI[facility] IRVING FOR GI AFTER DISCHARGE .PATIENT WANTS TO TAKE BUS TO [place] TOKEN GIVEN FOR BUS AND DISCHARGED AT 1430 .
--- NOTE | 2017-10-12 16:21 | NUR ---
[facility] SPECIAL EDUCATION TEACHER NOTE :PATIENT SEEN BY WITH DISCHARGE ORDER NEGERETE CALLED BACK WITH DISCHARGE ORDERS ALL DANIADERS CARRIED OUT.
== END 2017-10-12 14:30 | disposition home or self-care (01) | DRG 885 ==
LOC: GPS 19:53
PROVIDERS: ADMIT Psychiatry & Neurology Psychosomatic Medicine; ATTEND Psychiatry & Neurology Psychosomatic Medicine
DX: F25.0 Schizoaffective disorder, bipolar type (principal); N18.9 Chronic kidney disease, unspecified; N17.0 Acute kidney failure with tubular necrosis; E11.65 Type 2 diabetes mellitus with hyperglycemia; E11.22 Type 2 diabetes mellitus with diabetic chronic kidney disease; E87.5 Hyperkalemia; D62 Acute posthemorrhagic anemia; K92.2 Gastrointestinal hemorrhage, unspecified; B35.1 Tinea unguium; E86.9 Volume depletion, unspecified; F29 Unspecified psychosis not due to a substance or known physiological condition; T39.395A Adverse effect of other nonsteroidal anti-inflammatory drugs [NSAID], initial encounter; Y92.009 Unspecified place in unspecified non-institutional (private) residence as the place of occurrence of the external cause; K21.9 Gastro-esophageal reflux disease without esophagitis; E78.5 Hyperlipidemia, unspecified; D63.8 Anemia in other chronic diseases classified elsewhere; E03.9 Hypothyroidism, unspecified; E66.9 Obesity, unspecified; Z59.0 Homelessness; Z91.14 Patient's other noncompliance with medication regimen; L84 Corns and callosities; S81.002A Unspecified open wound, left knee, initial encounter; X58.XXXA Exposure to other specified factors, initial encounter; Y92.9 Unspecified place or not applicable
CPT/HCPCS: 36415; 80048-TC; 80061-TC; 80164-TC; 82272-TC; 82565-TC; 83735-TC; 84100-TC; 85025-TC; A6248; A6402; J2270; J2405; Q0162

== ENCOUNTER → 2017-10-28 | Outpatient (CLI) | payer MEDICARE, OTHER ==
[~2017-10-28] MED LIST changes: +CICL6.6S5 TP
== END | disposition home or self-care (01) ==
LOC: WOU 13:10
PROVIDERS: ATTEND Podiatrist Foot & Ankle Surgery
DX: Z09 Encounter for follow-up examination after completed treatment for conditions other than malignant neoplasm (principal); E11.42 Type 2 diabetes mellitus with diabetic polyneuropathy; E11.51 Type 2 diabetes mellitus with diabetic peripheral angiopathy without gangrene; B35.3 Tinea pedis; B35.1 Tinea unguium
CPT/HCPCS: G0463

== ENCOUNTER 2017-11-02 13:30 | Outpatient (CLI) | payer MEDICARE, OTHER | END 2017-11-02 23:59 | disposition home or self-care (01) | LOC: WOU 13:30 | PROVIDERS: ATTEND Specialist | DX: S81.012A Laceration without foreign body, left knee, initial encounter (principal); X58.XXXA Exposure to other specified factors, initial encounter; Z59.0 Homelessness; E11.9 Type 2 diabetes mellitus without complications; M06.9 Rheumatoid arthritis, unspecified; Z72.0 Tobacco use; F99 Mental disorder, not otherwise specified | CPT/HCPCS: 11042; A6209; A6402 ==

== ENCOUNTER 2017-12-23 10:40 | Outpatient (CLI) | payer MEDICARE, OTHER ==
[~2017-12-23 10:40] MED LIST changes: +NAPR-1009 PO; -NAPR500T4 PO
== END 2017-12-23 23:59 | disposition home or self-care (01) ==
LOC: WOU 10:40
PROVIDERS: ATTEND Podiatrist Foot & Ankle Surgery
DX: E11.42 Type 2 diabetes mellitus with diabetic polyneuropathy (principal); Z86.31 Personal history of diabetic foot ulcer; B35.1 Tinea unguium; L84 Corns and callosities; L90.9 Atrophic disorder of skin, unspecified; Z59.0 Homelessness; F17.200 Nicotine dependence, unspecified, uncomplicated
CPT/HCPCS: A6402; G0463

== ENCOUNTER 2017-12-28 10:00 | Outpatient (CLI) | payer MEDICARE, OTHER ==
[~2017-12-28 10:00] MED LIST changes: +CALCIUM CHLORIDE 1,000 MG/10 ML DISP.SYRIN ONE; +DEXTROSE 50%-WATER 50 ML DISP.SYRIN ONE; +INSULIN REGULAR, HUMAN 100 UNIT/ML 10 ML VIAL ONE; +ONDANSETRON HCL/PF 4 MG/2 ML VIAL ONE
== END 2017-12-28 23:59 | disposition home or self-care (01) ==
LOC: WOU 10:00
PROVIDERS: ATTEND Specialist
DX: S81.012D Laceration without foreign body, left knee, subsequent encounter (principal); X58.XXXD Exposure to other specified factors, subsequent encounter; E11.42 Type 2 diabetes mellitus with diabetic polyneuropathy; Z59.0 Homelessness; M06.9 Rheumatoid arthritis, unspecified
CPT/HCPCS: G0463; J1815; J2405; J3490

== ENCOUNTER → 2018-02-15 | Outpatient (CLI) | payer MEDICARE, OTHER ==
[~2018-02-15] MED LIST changes: -CALCIUM CHLORIDE 1,000 MG/10 ML DISP.SYRIN ONE; -DEXTROSE 50%-WATER 50 ML DISP.SYRIN ONE; -INSULIN REGULAR, HUMAN 100 UNIT/ML 10 ML VIAL ONE; -ONDANSETRON HCL/PF 4 MG/2 ML VIAL ONE
== END | disposition home or self-care (01) ==
LOC: WOU 15:22
PROVIDERS: ATTEND Specialist
DX: S81.012A Laceration without foreign body, left knee, initial encounter (principal); E11.42 Type 2 diabetes mellitus with diabetic polyneuropathy; F29 Unspecified psychosis not due to a substance or known physiological condition; F31.9 Bipolar disorder, unspecified; F60.1 Schizoid personality disorder; X58.XXXA Exposure to other specified factors, initial encounter; Y92.89 Other specified places as the place of occurrence of the external cause; Z59.0 Homelessness
CPT/HCPCS: 11042; A6209 ×2; A6402

== ENCOUNTER 2018-02-20 15:23 | Emergency (ER) | payer MEDICARE, OTHER ==
--- NOTE | 2018-02-20 16:00 | NUR ---
CALLED IN [facility]- NO ANSWER
--- NOTE | 2018-02-20 16:11 | NUR ---
CALLED IN [facility]- NO ANSWER
--- NOTE | 2018-02-20 16:15 | NUR ---
CALLED IN [facility]- NO ANSWER
== END 2018-02-20 16:16 | disposition left against medical advice (07) ==
LOC: ER 15:26
DX: Z53.21 Procedure and treatment not carried out due to patient leaving prior to being seen by health care provider (principal); M79.1 Myalgia
CPT/HCPCS: A4606; Z7610

== ENCOUNTER 2018-02-20 18:32 | Emergency (ER) | payer MEDICARE, OTHER ==
[~2018-02-20] VITALS: Ht 160 cm; Wt 68.0 kg
[2018-02-20 18:37] VITALS: BP 137/67
[2018-02-20] MEDS ORDERED: KETOROLAC TROMETHAMINE INJ 60 MG/2 ML VIAL IM ONE (19:00)
[2018-02-20] MEDS ORDERED: KETOROLAC TROMETHAMINE INJ 30 MG/ML VIAL ONE (19:06)
== END 2018-02-20 19:24 ==
LOC: ER 18:39
DX: G89.29 Other chronic pain (principal); M25.562 Pain in left knee; M54.9 Dorsalgia, unspecified; B95.61 Methicillin susceptible Staphylococcus aureus infection as the cause of diseases classified elsewhere; I10 Essential (primary) hypertension; Z98.890 Other specified postprocedural states; Z79.82 Long term (current) use of aspirin
CPT/HCPCS: A4606; J1885; Z7610

== ENCOUNTER 2018-03-08 13:00 | Outpatient (CLI) | payer MEDICARE, OTHER | END 2018-03-08 23:59 | disposition home or self-care (01) | LOC: WOU 13:00 | PROVIDERS: ATTEND Specialist | DX: S81.012A Laceration without foreign body, left knee, initial encounter (principal); X58.XXXA Exposure to other specified factors, initial encounter; Y92.89 Other specified places as the place of occurrence of the external cause; E11.42 Type 2 diabetes mellitus with diabetic polyneuropathy; Z72.0 Tobacco use; M06.9 Rheumatoid arthritis, unspecified; Z59.0 Homelessness; F60.1 Schizoid personality disorder; L02.426 Furuncle of left lower limb | CPT/HCPCS: 11042; A6209; A6402 ==

== ENCOUNTER 2018-03-15 13:14 | Outpatient (CLI) | payer MEDICARE, OTHER | END 2018-03-15 23:59 | disposition home or self-care (01) | LOC: WOU 13:14 | PROVIDERS: ATTEND Specialist | DX: S81.012A Laceration without foreign body, left knee, initial encounter (principal); X58.XXXA Exposure to other specified factors, initial encounter; Y92.89 Other specified places as the place of occurrence of the external cause; Z59.0 Homelessness; L02.426 Furuncle of left lower limb; F60.1 Schizoid personality disorder; Z72.0 Tobacco use; M06.9 Rheumatoid arthritis, unspecified; E11.42 Type 2 diabetes mellitus with diabetic polyneuropathy | CPT/HCPCS: 11042; A6209; A6402 ==

== ENCOUNTER 2018-04-05 13:30 | Outpatient (CLI) | payer MEDICARE, OTHER | END 2018-04-05 23:35 | disposition home or self-care (01) | LOC: WOU 13:30 | PROVIDERS: ATTEND Specialist | DX: S81.012A Laceration without foreign body, left knee, initial encounter (principal); X58.XXXA Exposure to other specified factors, initial encounter; Y92.89 Other specified places as the place of occurrence of the external cause; Z59.0 Homelessness; L02.426 Furuncle of left lower limb; F60.1 Schizoid personality disorder; E11.9 Type 2 diabetes mellitus without complications; M06.9 Rheumatoid arthritis, unspecified; Z72.0 Tobacco use | CPT/HCPCS: 11042; A6209; A6402; Z7610 ==

== ENCOUNTER 2018-05-03 10:55 | Outpatient (CLI) | payer MEDICARE, OTHER | END 2018-05-03 23:59 | disposition home or self-care (01) | LOC: WOU 10:55 | PROVIDERS: ATTEND Specialist | DX: L97.822 Non-pressure chronic ulcer of other part of left lower leg with fat layer exposed (principal); S81.012S Laceration without foreign body, left knee, sequela; W45.8XXS Other foreign body or object entering through skin, sequela; F60.1 Schizoid personality disorder; L02.426 Furuncle of left lower limb; Z59.0 Homelessness; Z72.0 Tobacco use; M06.9 Rheumatoid arthritis, unspecified; E11.9 Type 2 diabetes mellitus without complications; R41.3 Other amnesia; M16.10 Unilateral primary osteoarthritis, unspecified hip | CPT/HCPCS: 11042; A6209; A6402; Z7610 ==

== ENCOUNTER 2018-05-24 12:44 | Outpatient (CLI) | payer MEDICARE, OTHER | END 2018-05-24 23:59 | disposition home or self-care (01) | LOC: WOU 12:44 | PROVIDERS: ATTEND Podiatrist Foot & Ankle Surgery | DX: S81.012A Laceration without foreign body, left knee, initial encounter (principal); S81.812A Laceration without foreign body, left lower leg, initial encounter; X58.XXXA Exposure to other specified factors, initial encounter; Y92.89 Other specified places as the place of occurrence of the external cause; Z91.81 History of falling; Z59.0 Homelessness; M06.9 Rheumatoid arthritis, unspecified; L02.426 Furuncle of left lower limb; F60.1 Schizoid personality disorder; Z72.0 Tobacco use; E11.9 Type 2 diabetes mellitus without complications | CPT/HCPCS: 11042; A6197; A6402; Z7610 ==

== ENCOUNTER 2018-05-26 10:34 | Outpatient (CLI) | payer MEDICARE, MEDICAID | END 2018-05-26 23:59 | disposition home or self-care (01) | LOC: CT 10:34 | PROVIDERS: ATTEND Specialist | DX: M85.862 Other specified disorders of bone density and structure, left lower leg (principal) | CPT/HCPCS: 73700-TC ==

== ENCOUNTER 2018-05-31 13:29 | Outpatient (CLI) | payer MEDICARE, MEDICAID | END 2018-05-31 23:59 | disposition home or self-care (01) | LOC: WOU 13:29 | PROVIDERS: ATTEND Specialist | DX: S81.012A Laceration without foreign body, left knee, initial encounter (principal); X58.XXXA Exposure to other specified factors, initial encounter; Y92.89 Other specified places as the place of occurrence of the external cause; Z59.0 Homelessness; M23.004 Cystic meniscus, unspecified medial meniscus, left knee; F60.1 Schizoid personality disorder; L02.426 Furuncle of left lower limb; M06.9 Rheumatoid arthritis, unspecified; Z72.0 Tobacco use; E11.9 Type 2 diabetes mellitus without complications | CPT/HCPCS: 11042; 82962-TC; A6197; A6402; Z7610 ==

== ENCOUNTER 2018-06-06 11:49 | Emergency (ER) | payer MEDICARE, MEDICAID ==
[~2018-06-06] VITALS: Ht 160 cm; Wt 68.0 kg
[2018-06-06 11:49] VITALS: BP 135/75
--- NOTE | 2018-06-06 11:59 | NUR ---
REFUSING TO BE TRIAGED/SEEN.
--- NOTE | 2018-06-06 12:00 | NUR ---
SEEN BY DR PUENTE, FOOD TRAY ORDERED
== END 2018-06-06 13:35 | disposition home or self-care (01) ==
LOC: ER 11:53
DX: G89.4 Chronic pain syndrome (principal); I10 Essential (primary) hypertension; Z98.890 Other specified postprocedural states; Z60.2 Problems related to living alone; Z79.82 Long term (current) use of aspirin; Z79.899 Other long term (current) drug therapy
CPT/HCPCS: 99283; A4606; Z7610

== ENCOUNTER 2018-06-07 13:23 | Outpatient (CLI) | payer MEDICARE, MEDICAID | END 2018-06-07 23:59 | disposition home or self-care (01) | LOC: WOU 13:23 | PROVIDERS: ATTEND Specialist | DX: S81.012A Laceration without foreign body, left knee, initial encounter (principal); Y92.89 Other specified places as the place of occurrence of the external cause; Z72.0 Tobacco use; M06.9 Rheumatoid arthritis, unspecified; E11.9 Type 2 diabetes mellitus without complications; K21.9 Gastro-esophageal reflux disease without esophagitis; M23.004 Cystic meniscus, unspecified medial meniscus, left knee; Z59.0 Homelessness; L02.426 Furuncle of left lower limb; F60.1 Schizoid personality disorder | CPT/HCPCS: 11042; 82962-TC; A6197; A6402; Z7610 ==

== ENCOUNTER 2018-06-07 20:42 | Emergency (ER) | payer MEDICARE, MEDICAID ==
[~2018-06-07] VITALS: Ht 152.4 cm; Wt 72.6 kg
[2018-06-07 20:45] VITALS: BP 135/73
--- NOTE | 2018-06-07 21:20 | NUR ---
ARGUING WITH SECURITY. INSTRUCTED TO COME INSIDE THE ER. PT KEEPS ON ARGUING AND REFUSES TO GET INTO THE WC.
--- NOTE | 2018-06-07 22:30 | NUR ---
PT OUTSIDE SMOKING. WHEN ASKED TO COME INTO THE ROOM STATES "AM NOT DONE"
[2018-06-07] MEDS ORDERED: MORPHINE SULFATE INJ 4 MG/ML DISP.SYRIN ONE (22:59)
[2018-06-07] MEDS ORDERED: ONDANSETRON 4 MG TAB.RAPDIS ONE (22:59)
[2018-06-07] MEDS ORDERED: MORPHINE SULFATE INJ 2 MG/ML DISP.SYRIN IM ONE (23:00)
[2018-06-07] MEDS ORDERED: ONDANSETRON 4 MG TAB.RAPDIS SL ONE (23:00)
[2018-06-07] MEDS ORDERED: TDAP [DIPH/PERTUSSIS/TET] 0.5 ML VIAL IM ONE ×2 (23:00→23:25)
[2018-06-08] MEDS ORDERED: HYDROCODONE/APAP 10/325MG 1 EA TABLET PO ONE (00:30)
[2018-06-08] MEDS ORDERED: HYDROCODONE/APAP 10/325MG 1 EA TABLET ONE (00:51)
--- NOTE | 2018-06-08 01:14 | NUR ---
PT HAS BEEN DISCHARGED FROM FACILITY. BEFORE DOING SO ALL CARE WAS EXPLAINED INCLUDING ALL X-RAY RESULTS AND NO NEED TO STAY IN HOSPITAL D/T NO ACUTE FRACTURES. PT WAS HELPED OUT OF THE FACILITY BY STAFF AND SECURITY D/T HER SCREAMING CUSS WORDS AND NOT BEING COOPERATIVE.
== END 2018-06-08 01:16 | disposition home or self-care (01) ==
LOC: ER 20:46
DX: S90.02XA Contusion of left ankle, initial encounter (principal); S50.311A Abrasion of right elbow, initial encounter; Z23 Encounter for immunization; F17.200 Nicotine dependence, unspecified, uncomplicated; Z60.2 Problems related to living alone; I10 Essential (primary) hypertension; Z79.82 Long term (current) use of aspirin; E11.9 Type 2 diabetes mellitus without complications; V09.20XA Pedestrian injured in traffic accident involving unspecified motor vehicles, initial encounter; Y93.89 Activity, other specified; Y92.410 Unspecified street and highway as the place of occurrence of the external cause; Y99.8 Other external cause status
CPT/HCPCS: 71045; 72170; 73030; 73080; 73551; 73564; 73610 ×2; 90471; 90715; 96372; 99284; 99406; A4606; J2270; Q0162; 73552; Z7610

== ENCOUNTER 2018-06-08 08:03 | Emergency (ER) | payer MEDICARE, MEDICAID ==
[~2018-06-08] VITALS: Ht 152.4 cm; Wt 68.0 kg
[2018-06-08] MEDS ORDERED: HYDROCODONE/APAP 5/325MG 1 EACH TABLET ONE (08:14)
[2018-06-08] MEDS ORDERED: HYDROCODONE/APAP 5/325MG 1 EACH TABLET PO ONE (08:30)
== END 2018-06-08 08:43 | disposition home or self-care (01) ==
LOC: ER 08:04
DX: S50.311A Abrasion of right elbow, initial encounter (principal); I10 Essential (primary) hypertension; Z60.2 Problems related to living alone; Z59.0 Homelessness; F17.200 Nicotine dependence, unspecified, uncomplicated; Z79.82 Long term (current) use of aspirin; W22.8XXA Striking against or struck by other objects, initial encounter; Y93.89 Activity, other specified; Y92.89 Other specified places as the place of occurrence of the external cause; Y99.8 Other external cause status

== ENCOUNTER 2019-08-29 13:45 | Outpatient (CLI) | payer MEDICARE, MEDICAID ==
[~2019-08-29 13:45] MED LIST changes: +HYDR-4384 PO; -HYDR-552 PO; +SIMV-46 PO; -SIMV20TA6 PO
== END 2019-08-29 23:59 | disposition home or self-care (01) ==
LOC: WOU 13:45
PROVIDERS: ATTEND Specialist
DX: Z09 Encounter for follow-up examination after completed treatment for conditions other than malignant neoplasm (principal); E11.9 Type 2 diabetes mellitus without complications; F60.3 Borderline personality disorder; Z59.0 Homelessness; M06.9 Rheumatoid arthritis, unspecified; M23.204 Derangement of unspecified medial meniscus due to old tear or injury, left knee
CPT/HCPCS: G0463